=== PATIENT | female | born 1990 | race Caucasian/White ===

== ENCOUNTER 2020-02-20 17:35 | Inpatient (IN) ==
--- NOTE | 2020-02-20 18:26 | Labor Progress Brief Note ---
Date of Service February 20, 2020 Subjective Patient here for r/o ROM. She is 40w1d, , not c/o contractions or VB and has good FM. Assessment & Plan (1) Post term over 40 weeks: Admission and Anticipated Discharge Date Admission Date: Patient is not ruptured and not laboring. At this time the RN expresses concern that the patient's tracing does not qualify for discharge to home as it has not demonstrated two 15x15 bpm accelerations in her assessment. I agree we must be completely comfortable with tracing, at 40+ wk GA especially. Biophysical profile ordered to provide additional reassurance. Ultrasound staff are busy in OR right now and give us an estimate of 1-2 hours before this can be completed. Patient to be observed on monitor while waiting. Physical Exam Physical Exam: FHT Cat 1 Roe Rare irritability Cvx not assessed Nitrazine neg, no obvious LOF, Amnisure done and negative. Results & Data ([facility]) Vital Signs (Past 12 Hours) Vital Signs Temp Pulse Resp BP 02/20/20 17:51 98.1 F 16 02/20/20 17:44 98 H 137/83 Coding Level of Care Code None Diagnoses Post term over 40 weeks O48.0
[2020-02-20] MEDS ORDERED: OXYTOCIN 30 UNITS/500 ML BAG IV PRN ×2 (18:48→19:58)
--- NOTE | 2020-02-20 18:54 | Labor Progress Brief Note ---
Date of Service February 20, 2020 Subjective RN notified me that the patient got up to void, and that RN noted a pool of fluid on the chux pad beneath the patient. I went to the room to evaluate her myself. She continues to feel she is leaking, not jacinto, and has good FM. Assessment & Plan (1) PROM (premature rupture of membranes): Admission and Anticipated Discharge Date Admission Date: PROM now diagnosed; no active labor. Discussed with patient and FOB recommendation to begin induction with pitocin. They are agreeable. She is unsure if she wants an epidural or not. GBS positive, start PCN now. FHT now reactive, and discharge is no longer in the plans. BPP canceled. Physical Exam Physical Exam: SSE: Pool of amniotic fluid with vernix floaters, active leaking from os seen. CVX: 3/75/-2 FHT: Now cat 1 reactive, following one variable decel about 20 min ago. [place]: Quiet. Results & Data ([facility]) Vital Signs (Past 12 Hours) Vital Signs Temp Pulse Resp BP 02/20/20 17:51 98.1 F 16 02/20/20 17:44 98 H 137/83 Coding Level of Care Code None Diagnoses PROM (premature rupture of membranes) O42.90
[2020-02-20] MEDS ORDERED: PENICILLIN G POTASSIUM 6 MU in DEXTROSE 5% 250 ML IV ONE (19:00)
[2020-02-20] MEDS: LACTATED RINGER'S 1,000 ML IV PRN (19:06)
[2020-02-20 19:12] LABS: Hematocrit (blood only) 36.2 % (37-47); Hemoglobin 12.3 g/dL (12.0-16.0); Mean Corpuscular Hemoglobin 30.3 pg (25-34); Mean Corpuscular Volume 89.2 fL (80-100); Mean Platelet Volume 8.8 fL (7.4-10.4); Platelet Count 323 K/uL (130-400); RDW Coefficient of Variation 13.8 % (11.5-14.5); RDW Standard Deviation 45.2 fL (36.4-46.3); Red Blood Count 4.06 M/uL (4.2-5.4); White Blood Count 14.77 K/uL (4.8-10.8)
[2020-02-20] MEDS: PENICILLIN G POTASSIUM 3 MU in DEXTROSE 5% 100 ML IV PRN (23:18)
[2020-02-21] MEDS ORDERED: NALOXONE HCL 0.4 MG/1 ML VIAL/CARP IV PRN (00:35)
[2020-02-21] MEDS ORDERED: ePHEDrine sulfate 50 MG/ML AMP IV PRN (00:35)
[2020-02-21] MEDS ORDERED: ONDANSETRON INJ 2 MG/ML 2 ML VIAL IV PRN (00:35)
[2020-02-21] MEDS ORDERED: ePHEDrine sulfate 50 MG/ML AMP ONE (00:35)
[2020-02-21] MEDS ORDERED: NALOXONE HCL 1 MG in SODIUM CHLORIDE 0.9% 1000ML 1,000 ML IV PRN (00:35)
[2020-02-21] MEDS ORDERED: DiphenhydrAMINE HCL 50 MG/ML VIAL IV PRN (00:35)
[2020-02-21] MEDS ORDERED: fentaNYL 2MCG/ML ROPIV 1.25MG/ML 100 ML BAG EPI ONE (00:36)
[2020-02-21] MEDS ORDERED: fentaNYL citrate 100 MCG/2 ML VIAL ONE ×2 (00:36→13:00)
[2020-02-21] MEDS ORDERED: BUPIVACAINE 0.25% 30 ML VIAL ONE (00:36)
--- NOTE | 2020-02-21 00:42 | Anesthesiology Consultation ---
Date of Service February 21, 2020 Covid 19 negative on 02/17/20. Assessment & Plan Chart Review Chart Review: Patient NOT seen in Pre Admission Testing and Acceptable Risk for Labor Epidural Consults Requested none ASA ASA2 Proposed Anesthesia Anesthesia Type: Labor Epidural and CSE Risk / Benefits Reviewed With: PT / POA / Parent / Guardian, Accepts Plan and Informed Consent Obtained History Height/Weight Height: 5 ft 4 in Weight: 88.904 kg Allergies Allergy/AdvReac Type Severity Reaction Status Date / Time Bactrim Allergy Intermediate vomiting Verified 01/27/19 10:59 and hives sulfamethoxazole Allergy Intermediate vomiting Verified 02/20/20 17:46 and hives trimethoprim Allergy Intermediate vomiting Verified 02/20/20 17:46 and hives Medications Home Medications Medication Instructions Recorded Confirmed Last Taken prenat.vits,pamela,usf-xhoq-ocdxt 1 tab PO DAILY 07/09/19 02/20/20 02/20/20 Active Medications Generic Name Dose Route Start Last Admin Trade Name Freq PRN Reason Stop Dose Admin Lactated Ringer's 1,000 mls @ 125 mls/hr 02/20/20 18:48 02/20/20 23:18 Lr IV 02/22/20 18:47 0 mls/hr .Q8H PRN Infusion L&D Protocol Protocol Penicillin G Potassium 3 mu/ 106 mls @ 100 mls/hr 02/20/20 18:48 02/20/20 23:18 Dextrose IV 03/01/20 18:47 100 mls/hr Q4H PRN Administration Give until delivery Oxytocin 30 units in 500 mls @ 11 mls/hr 02/20/20 19:58 02/21/20 00:00 Pitocin IV 02/22/20 19:57 0.66 units/hr .Q24H PRN 11 mls/hr Labor Induction/Augmentation Titration Protocol 0.66 UNITS/HR NPO Date Last Intake of Fluids: 02/20/20 Time Last Intake of Fluids: 23:00 Date Last Intake of Solids: 02/20/20 Time Last Intake of Solids: 13:00 Past Medical History Medical History History of arthritis History of chicken pox 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 Vasovagal syncope Exercise / Class Metabolic Activity II 4-5 Yardwork/Stairs/Walk up hill Past Family History Family History Grandmother (Paternal) Breast cancer Mother Breast cancer Family/Other Hypertension Dyslipidemia Father Myocardial infarction Past Surgical History Surgical History H/O colposcopy with cervical biopsy S/P wisdom tooth extraction Past Anesthesia History No Hx of Anesthesia Complications and No Family Hx of Anesthesia Complications History of PONV No Hx of PONV and No Hx of Motion Sickness Social History Smoking Status: Never smoker Hx Alcohol Use: No Hx Substance Use: No Review of Systems no chest pain or sob Physical Exam Vital Signs Last Vital Signs Temp 36.6 C 02/20/20 23:29 Pulse 93 H 02/21/20 00:38 Resp 18 02/20/20 23:29 BP 124/66 02/20/20 23:54 Pulse Ox 98 02/21/20 00:38 ENMT Mouth: no TMJ abnormality Thyromental Distance: > or= 3.5 Finger Breadths Mallampati Class: II Neck normal visual inspection Respiratory normal respiratory effort Auscultation: lungs clear to auscultation bilaterally Cardiovascular Rate/Rhythm: regular rate and regular rhythm Musculoskeletal Spine: normal cervical ROM Neurologic moves all extremities Psychiatric Orientation: alert and oriented x 3 Testing Laboratory Results 02/20/20 19:00
[2020-02-21] MEDS: fentaNYL 2MCG/ML ROPIV 1.25MG/ML 100 ML BAG EPI PRN ×2 (01:00→08:50)
[2020-02-21] MEDS: LACTATED RINGER'S 1,000 ML IV PRN ×2 (01:08→06:01)
--- NOTE | 2020-02-21 02:46 | Labor Progress Brief Note ---
Date of Service February 21, 2020 Subjective Patient sleeping per RN, not awakened at this time. Assessment & Plan (1) PROM (premature rupture of membranes): Contine pitocin, epidural, Abx. Anticipate . Admission and Anticipated Discharge Date Admission Date: February 20, 2020 Physical Exam Physical Exam: Deferred. Last RN exam at midnight was 4/50/-2. FHT Cat 1 currently Has had some early decels prior to last repositioning. [place] Q2-5 irreg Pit @ 15 Results & Data ([facility]) Vital Signs (Past 12 Hours) Vital Signs Temp Pulse Resp BP Pulse Ox 02/21/20 02:43 86 98 02/21/20 02:40 76 99/57 L 02/21/20 02:38 77 98 02/21/20 02:33 95 H 99 02/21/20 02:30 18 02/21/20 02:28 106 H 97 02/21/20 02:25 85 105/64 02/21/20 02:23 86 97 02/21/20 02:18 86 96 02/21/20 02:13 89 98 02/21/20 02:09 89 112/56 L 02/21/20 02:08 90 95 02/21/20 02:06 98 H 94 02/21/20 02:03 97 H 96 02/21/20 02:00 18 02/21/20 01:58 85 95 02/21/20 01:55 90 115/56 L 02/21/20 01:53 82 95 02/21/20 01:48 84 97 02/21/20 01:46 101 H 94 02/21/20 01:43 87 96 02/21/20 01:38 100 H 97 02/21/20 01:37 82 106/56 L 02/21/20 01:33 93 H 105/58 L 95 02/21/20 01:30 18 02/21/20 01:28 78 97/52 L 95 02/21/20 01:24 85 94 02/21/20 01:23 84 104/58 L 96 02/21/20 01:20 97.9 F 02/21/20 01:19 93 H 111/57 L 02/21/20 01:18 114 H 97 02/21/20 01:15 18 02/21/20 01:13 90 100/54 L 97 02/21/20 01:10 86 18 94 02/21/20 01:08 89 96 02/21/20 01:06 89 102/59 L 02/21/20 01:05 18 02/21/20 01:04 83 101/56 L 02/21/20 01:03 100 H 97 02/21/20 01:02 91 H 100/57 L 02/21/20 01:00 90 18 102/59 L 02/21/20 00:58 85 105/63 98 02/21/20 00:57 104/57 L 02/21/20 00:55 65 94 02/21/20 00:54 63 92/54 L 02/21/20 00:53 63 84/47 L 95 02/21/20 00:52 54 L 94/49 L 02/21/20 00:48 76 97 02/21/20 00:43 101 H 96 02/21/20 00:38 93 H 98 02/20/20 23:54 93 H 124/66 02/20/20 23:29 97.9 F 18 02/20/20 22:46 84 132/72 02/20/20 21:37 97.7 F 79 18 114/77 02/20/20 20:37 83 119/74 02/20/20 19:21 99.1 F 85 18 128/78 02/20/20 17:51 98.1 F 16 02/20/20 17:44 98 H 137/83 Coding Level of Care Code None Diagnoses PROM (premature rupture of membranes) O42.90
[2020-02-21] MEDS: PENICILLIN G POTASSIUM 3 MU in DEXTROSE 5% 100 ML IV PRN ×3 (03:43→11:57)
--- NOTE | 2020-02-21 07:57 | Labor Progress Brief Note ---
Date of Service February 21, 2020 Subjective Comfortable with epidural. Assessment & Plan (1) PROM (premature rupture of membranes): Patient progressing with pitocin. Needed to take a 30-min break from the pit to allow resuscitation after some variables and elevated baseline earlier but now recovered well and resuming induction. Bloody show new at this check. Continues GBS abx. Admission and Anticipated Discharge Date Admission Date: February 20, 2020 Physical Exam Physical Exam: /0 Mildly edematous cervix and labia noted LOF clear Bloody show present FHT Cat 1 with occ early decels Pit restarting at 1, toco Q4-5 now. Results & Data ([facility]) Vital Signs (Past 12 Hours) Vital Signs Temp Pulse Resp BP Pulse Ox 02/21/20 07:49 99 H 99 02/21/20 07:44 96 H 99 02/21/20 07:39 110 H 123/82 98 02/21/20 07:34 109 H 99 02/21/20 07:29 103 H 99 02/21/20 07:24 101 H 123/76 98 02/21/20 07:19 97 H 99 02/21/20 07:14 116 H 99 02/21/20 07:09 105 H 122/77 99 02/21/20 07:04 96 H 98 02/21/20 07:00 18 02/21/20 06:59 106 H 97 02/21/20 06:54 105 H 121/76 98 02/21/20 06:49 105 H 99 02/21/20 06:47 120 H 91 02/21/20 06:44 104 H 99 02/21/20 06:39 100 H 100 02/21/20 06:38 100 H 115/71 02/21/20 06:34 90 100 02/21/20 06:30 18 02/21/20 06:29 104 H 100 02/21/20 06:24 90 116/67 100 02/21/20 06:19 87 100 02/21/20 06:14 86 100 02/21/20 06:09 86 116/69 100 02/21/20 06:04 90 100 02/21/20 06:00 18 02/21/20 05:59 96 H 100 02/21/20 05:54 93 H 123/71 98 02/21/20 05:49 98 H 98 02/21/20 05:44 105 H 98 02/21/20 05:40 103 H 127/75 02/21/20 05:39 99 H 92 02/21/20 05:35 104 H 94 02/21/20 05:34 97 H 93 02/21/20 05:30 18 02/21/20 05:29 92 H 98 02/21/20 05:24 88 121/68 97 02/21/20 05:19 102 H 98 02/21/20 05:16 97.9 F 02/21/20 05:14 91 H 97 02/21/20 05:09 82 118/63 97 02/21/20 05:04 86 99 02/21/20 05:00 18 02/21/20 04:59 89 99 02/21/20 04:54 91 H 122/73 97 02/21/20 04:49 90 97 02/21/20 04:44 99 H 97 02/21/20 04:39 88 113/69 97 02/21/20 04:34 86 96 02/21/20 04:30 18 02/21/20 04:29 89 97 02/21/20 04:24 99 H 118/68 98 02/21/20 04:19 92 H 98 02/21/20 04:14 94 H 98 02/21/20 04:09 95 H 120/69 98 02/21/20 04:04 95 H 97 02/21/20 03:59 99 H 96 02/21/20 03:54 88 125/76 97 02/21/20 03:49 99 H 95 02/21/20 03:46 102 H 92 02/21/20 03:44 97 H 97 02/21/20 03:40 96 H 121/79 02/21/20 03:39 93 H 98 02/21/20 03:37 98.1 F 02/21/20 03:34 99 H 97 02/21/20 03:30 18 02/21/20 03:29 89 97 02/21/20 03:24 100 H 115/64 99 02/21/20 03:19 76 96 02/21/20 03:14 80 96 02/21/20 03:09 90 97/58 L 97 02/21/20 03:04 86 97 02/21/20 03:00 18 02/21/20 02:59 79 97 02/21/20 02:54 75 100/58 L 97 02/21/20 02:48 80 97 02/21/20 02:43 86 98 02/21/20 02:40 76 99/57 L 02/21/20 02:38 77 98 02/21/20 02:33 95 H 99 02/21/20 02:30 18 02/21/20 02:28 106 H 97 02/21/20 02:25 85 105/64 02/21/20 02:23 86 97 02/21/20 02:18 86 96 02/21/20 02:13 89 98 02/21/20 02:09 89 112/56 L 02/21/20 02:08 90 95 02/21/20 02:06 98 H 94 02/21/20 02:03 97 H 96 02/21/20 02:00 18 02/21/20 01:58 85 95 02/21/20 01:55 90 115/56 L 02/21/20 01:53 82 95 02/21/20 01:48 84 97 02/21/20 01:46 101 H 94 02/21/20 01:43 87 96 02/21/20 01:38 100 H 97 02/21/20 01:37 82 106/56 L 02/21/20 01:33 93 H 105/58 L 95 02/21/20 01:30 18 02/21/20 01:28 78 97/52 L 95 02/21/20 01:24 85 94 02/21/20 01:23 84 104/58 L 96 02/21/20 01:20 97.9 F 02/21/20 01:19 93 H 111/57 L 02/21/20 01:18 114 H 97 02/21/20 01:15 18 02/21/20 01:13 90 100/54 L 97 02/21/20 01:10 86 18 94 02/21/20 01:08 89 96 02/21/20 01:06 89 102/59 L 02/21/20 01:05 18 02/21/20 01:04 83 101/56 L 02/21/20 01:03 100 H 97 02/21/20 01:02 91 H 100/57 L 02/21/20 01:00 90 18 102/59 L 02/21/20 00:58 85 105/63 98 08/17/20 00:57 104/57 L 02/21/20 00:55 65 94 02/21/20 00:54 63 92/54 L 02/21/20 00:53 63 84/47 L 95 02/21/20 00:52 54 L 94/49 L 02/21/20 00:48 76 97 02/21/20 00:43 101 H 96 02/21/20 00:38 93 H 98 02/20/20 23:54 93 H 124/66 02/20/20 23:29 97.9 F 18 02/20/20 22:46 84 132/72 02/20/20 21:37 97.7 F 79 18 114/77 02/20/20 20:37 83 119/74 Coding Level of Care Code None Diagnoses PROM (premature rupture of membranes) O42.90
--- NOTE | 2020-02-21 09:54 | Labor Progress Brief Note ---
Date of Service February 21, 2020 Subjective Patient noting pressure in back and bottom Assessment & Plan (1) PROM (premature rupture of membranes): (2) Post term over 40 weeks: Pitocin has been restarted. Fetus overall reassuring category 2. Concerned about swelling of the cervix at this point. Will recheck in one hour and if no change, plan iupc. Admission and Anticipated Discharge Date Admission Date: February 20, 2020 Physical Exam Constitutional: WD/WN, vitals as above Psychiatric: A+Ox3, euthymic affect Genitourinary: cx--5.5/80/-2, swollen toco--q2-4min, pit at 7 efm--150s wtih mod variability, accels to 160s, +scalp stim, occasional variable Results & Data ([facility]) Vital Signs (Past 12 Hours) Vital Signs Temp Pulse Resp BP Pulse Ox 02/21/20 09:49 105 H 95 02/21/20 09:44 114 H 99 02/21/20 09:39 103 H 117/71 98 02/21/20 09:34 92 H 96 02/21/20 09:29 101 H 96 02/21/20 09:25 100 H 83 L 02/21/20 09:24 106 H 116/64 96 02/21/20 09:19 101 H 112/63 97 02/21/20 09:14 103 H 98 02/21/20 09:09 94 H 118/62 96 02/21/20 09:04 94 H 95 02/21/20 08:59 97 H 98 02/21/20 08:54 95 H 122/72 98 02/21/20 08:49 105 H 97 02/21/20 08:44 96 H 97 02/21/20 08:39 102 H 119/70 98 02/21/20 08:34 103 H 97 02/21/20 08:31 100 H 93 02/21/20 08:29 104 H 100 02/21/20 08:24 103 H 120/72 97 02/21/20 08:19 104 H 98 02/21/20 08:14 99 H 98 02/21/20 08:09 102 H 118/70 99 02/21/20 08:04 98 H 98 02/21/20 07:59 105 H 99 02/21/20 07:54 111 H 122/73 98 02/21/20 07:49 99 H 99 02/21/20 07:44 96 H 99 02/21/20 07:39 37.3 C 102 H 18 123/82 98 02/21/20 07:34 109 H 99 02/21/20 07:29 103 H 99 02/21/20 07:24 101 H 123/76 98 02/21/20 07:19 97 H 99 02/21/20 07:14 116 H 99 02/21/20 07:09 105 H 122/77 99 02/21/20 07:04 96 H 98 02/21/20 07:00 18 02/21/20 06:59 106 H 97 02/21/20 06:54 105 H 121/76 98 02/21/20 06:49 105 H 99 02/21/20 06:47 120 H 91 02/21/20 06:44 104 H 99 02/21/20 06:39 100 H 100 02/21/20 06:38 100 H 115/71 02/21/20 06:34 90 100 02/21/20 06:30 18 02/21/20 06:29 104 H 100 02/21/20 06:24 90 116/67 100 02/21/20 06:19 87 100 02/21/20 06:14 86 100 02/21/20 06:09 86 116/69 100 02/21/20 06:04 90 100 02/21/20 06:00 18 02/21/20 05:59 96 H 100 02/21/20 05:54 93 H 123/71 98 02/21/20 05:49 98 H 98 02/21/20 05:44 105 H 98 02/21/20 05:40 103 H 127/75 02/21/20 05:39 99 H 92 02/21/20 05:35 104 H 94 02/21/20 05:34 97 H 93 02/21/20 05:30 18 02/21/20 05:29 92 H 98 02/21/20 05:24 88 121/68 97 02/21/20 05:19 102 H 98 02/21/20 05:16 36.6 C 02/21/20 05:14 91 H 97 02/21/20 05:09 82 118/63 97 02/21/20 05:04 86 99 02/21/20 05:00 18 02/21/20 04:59 89 99 02/21/20 04:54 91 H 122/73 97 02/21/20 04:49 90 97 02/21/20 04:44 99 H 97 02/21/20 04:39 88 113/69 97 02/21/20 04:34 86 96 02/21/20 04:30 18 02/21/20 04:29 89 97 02/21/20 04:24 99 H 118/68 98 02/21/20 04:19 92 H 98 02/21/20 04:14 94 H 98 02/21/20 04:09 95 H 120/69 98 02/21/20 04:04 95 H 97 02/21/20 03:59 99 H 96 02/21/20 03:54 88 125/76 97 02/21/20 03:49 99 H 95 02/21/20 03:46 102 H 92 02/21/20 03:44 97 H 97 02/21/20 03:40 96 H 121/79 02/21/20 03:39 93 H 98 02/21/20 03:37 36.7 C 02/21/20 03:34 99 H 97 02/21/20 03:30 18 02/21/20 03:29 89 97 02/21/20 03:24 100 H 115/64 99 02/21/20 03:19 76 96 02/21/20 03:14 80 96 02/21/20 03:09 90 97/58 L 97 02/21/20 03:04 86 97 02/21/20 03:00 18 02/21/20 02:59 79 97 02/21/20 02:54 75 100/58 L 97 02/21/20 02:48 80 97 02/21/20 02:43 86 98 02/21/20 02:40 76 99/57 L 02/21/20 02:38 77 98 02/21/20 02:33 95 H 99 02/21/20 02:30 18 02/21/20 02:28 106 H 97 02/21/20 02:25 85 105/64 02/21/20 02:23 86 97 02/21/20 02:18 86 96 02/21/20 02:13 89 98 02/21/20 02:09 89 112/56 L 02/21/20 02:08 90 95 02/21/20 02:06 98 H 94 02/21/20 02:03 97 H 96 02/21/20 02:00 18 02/21/20 01:58 85 95 02/21/20 01:55 90 115/56 L 02/21/20 01:53 82 95 02/21/20 01:48 84 97 02/21/20 01:46 101 H 94 02/21/20 01:43 87 96 02/21/20 01:38 100 H 97 02/21/20 01:37 82 106/56 L 02/21/20 01:33 93 H 105/58 L 95 02/21/20 01:30 18 02/21/20 01:28 78 97/52 L 95 02/21/20 01:24 85 94 02/21/20 01:23 84 104/58 L 96 02/21/20 01:20 36.6 C 02/21/20 01:19 93 H 111/57 L 02/21/20 01:18 114 H 97 02/21/20 01:15 18 02/21/20 01:13 90 100/54 L 97 02/21/20 01:10 86 18 94 02/21/20 01:08 89 96 02/21/20 01:06 89 102/59 L 02/21/20 01:05 18 02/21/20 01:04 83 101/56 L 02/21/20 01:03 100 H 97 02/21/20 01:02 91 H 100/57 L 02/21/20 01:00 90 18 102/59 L 02/21/20 00:58 85 105/63 98 02/21/20 00:57 104/57 L 02/21/20 00:55 65 94 02/21/20 00:54 63 92/54 L 02/21/20 00:53 63 84/47 L 95 02/21/20 00:52 54 L 94/49 L 02/21/20 00:48 76 97 02/21/20 00:43 101 H 96 02/21/20 00:38 93 H 98 02/20/20 23:54 93 H 124/66 02/20/20 23:29 36.6 C 18 02/20/20 22:46 84 132/72 Coding Level of Care Code None Diagnoses PROM (premature rupture of membranes) O42.90 Post term over 40 weeks O48.0
--- NOTE | 2020-02-21 10:53 | Labor Progress Brief Note ---
Date of Service February 21, 2020 Subjective resting Assessment & Plan (1) Post term over 40 weeks: continue pitocin to achieve contractions of 200mvu. fetus overall reassuring. Admission and Anticipated Discharge Date Admission Date: February 20, 2020 Physical Exam Constitutional: WD/WN, vitals as above Psychiatric: A+Ox3, euthymic affect Genitourinary: cx--6/90/-2 iupc placed toco--q2-4min, dysfunctional, pit 11 efm--150s wtih mod variability, accels to 160s, +scalp stim, occasional variable Results & Data ([facility]) Vital Signs (Past 12 Hours) Vital Signs Temp Pulse Resp BP Pulse Ox 02/21/20 10:49 101 H 98 02/21/20 10:44 111 H 98 02/21/20 10:39 104 H 127/71 95 02/21/20 10:34 120 H 94 02/21/20 10:29 112 H 98 02/21/20 10:24 100 H 127/70 96 02/21/20 10:19 117 H 98 02/21/20 10:14 107 H 99 02/21/20 10:09 105 H 127/67 99 02/21/20 10:08 20 02/21/20 10:04 104 H 98 02/21/20 09:59 102 H 96 02/21/20 09:54 104 H 128/75 98 02/21/20 09:49 105 H 95 02/21/20 09:44 114 H 99 02/21/20 09:39 103 H 117/71 98 02/21/20 09:34 92 H 96 02/21/20 09:29 101 H 96 02/21/20 09:25 100 H 83 L 02/21/20 09:24 106 H 116/64 96 02/21/20 09:19 101 H 112/63 97 02/21/20 09:18 37.4 C 18 02/21/20 09:14 103 H 98 02/21/20 09:09 94 H 118/62 96 02/21/20 09:04 94 H 95 02/21/20 08:59 97 H 98 02/21/20 08:54 95 H 122/72 98 02/21/20 08:49 105 H 97 02/21/20 08:44 96 H 97 02/21/20 08:39 102 H 119/70 98 02/21/20 08:34 103 H 97 02/21/20 08:31 100 H 93 02/21/20 08:29 104 H 100 02/21/20 08:24 103 H 120/72 97 02/21/20 08:23 16 02/21/20 08:19 104 H 98 02/21/20 08:14 99 H 98 02/21/20 08:09 102 H 118/70 99 02/21/20 08:04 98 H 98 02/21/20 07:59 105 H 99 02/21/20 07:54 111 H 122/73 98 02/21/20 07:49 99 H 99 02/21/20 07:44 96 H 99 02/21/20 07:39 37.3 C 102 H 18 123/82 98 02/21/20 07:34 109 H 99 02/21/20 07:29 103 H 99 02/21/20 07:24 101 H 123/76 98 02/21/20 07:19 97 H 99 02/21/20 07:14 116 H 99 02/21/20 07:09 105 H 122/77 99 02/21/20 07:04 96 H 98 02/21/20 07:00 18 02/21/20 06:59 106 H 97 02/21/20 06:54 105 H 121/76 98 02/21/20 06:49 105 H 99 02/21/20 06:47 120 H 91 02/21/20 06:44 104 H 99 02/21/20 06:39 100 H 100 02/21/20 06:38 100 H 115/71 02/21/20 06:34 90 100 02/21/20 06:30 18 02/21/20 06:29 104 H 100 02/21/20 06:24 90 116/67 100 02/21/20 06:19 87 100 02/21/20 06:14 86 100 02/21/20 06:09 86 116/69 100 02/21/20 06:04 90 100 02/21/20 06:00 18 02/21/20 05:59 96 H 100 02/21/20 05:54 93 H 123/71 98 02/21/20 05:49 98 H 98 02/21/20 05:44 105 H 98 02/21/20 05:40 103 H 127/75 08/17/20 05:39 99 H 92 02/21/20 05:35 104 H 94 02/21/20 05:34 97 H 93 02/21/20 05:30 18 02/21/20 05:29 92 H 98 02/21/20 05:24 88 121/68 97 02/21/20 05:19 102 H 98 02/21/20 05:16 36.6 C 02/21/20 05:14 91 H 97 02/21/20 05:09 82 118/63 97 02/21/20 05:04 86 99 02/21/20 05:00 18 02/21/20 04:59 89 99 02/21/20 04:54 91 H 122/73 97 02/21/20 04:49 90 97 02/21/20 04:44 99 H 97 02/21/20 04:39 88 113/69 97 02/21/20 04:34 86 96 02/21/20 04:30 18 02/21/20 04:29 89 97 02/21/20 04:24 99 H 118/68 98 02/21/20 04:19 92 H 98 02/21/20 04:14 94 H 98 02/21/20 04:09 95 H 120/69 98 02/21/20 04:04 95 H 97 02/21/20 03:59 99 H 96 02/21/20 03:54 88 125/76 97 02/21/20 03:49 99 H 95 02/21/20 03:46 102 H 92 02/21/20 03:44 97 H 97 02/21/20 03:40 96 H 121/79 02/21/20 03:39 93 H 98 02/21/20 03:37 36.7 C 02/21/20 03:34 99 H 97 02/21/20 03:30 18 02/21/20 03:29 89 97 02/21/20 03:24 100 H 115/64 99 02/21/20 03:19 76 96 02/21/20 03:14 80 96 02/21/20 03:09 90 97/58 L 97 02/21/20 03:04 86 97 02/21/20 03:00 18 02/21/20 02:59 79 97 02/21/20 02:54 75 100/58 L 97 02/21/20 02:48 80 97 02/21/20 02:43 86 98 02/21/20 02:40 76 99/57 L 02/21/20 02:38 77 98 02/21/20 02:33 95 H 99 02/21/20 02:30 18 02/21/20 02:28 106 H 97 02/21/20 02:25 85 105/64 02/21/20 02:23 86 97 02/21/20 02:18 86 96 02/21/20 02:13 89 98 02/21/20 02:09 89 112/56 L 02/21/20 02:08 90 95 02/21/20 02:06 98 H 94 02/21/20 02:03 97 H 96 02/21/20 02:00 18 02/21/20 01:58 85 95 02/21/20 01:55 90 115/56 L 02/21/20 01:53 82 95 02/21/20 01:48 84 97 02/21/20 01:46 101 H 94 02/21/20 01:43 87 96 02/21/20 01:38 100 H 97 02/21/20 01:37 82 106/56 L 02/21/20 01:33 93 H 105/58 L 95 02/21/20 01:30 18 02/21/20 01:28 78 97/52 L 95 02/21/20 01:24 85 94 02/21/20 01:23 84 104/58 L 96 02/21/20 01:20 36.6 C 02/21/20 01:19 93 H 111/57 L 02/21/20 01:18 114 H 97 02/21/20 01:15 18 02/21/20 01:13 90 100/54 L 97 02/21/20 01:10 86 18 94 02/21/20 01:08 89 96 02/21/20 01:06 89 102/59 L 02/21/20 01:05 18 02/21/20 01:04 83 101/56 L 02/21/20 01:03 100 H 97 02/21/20 01:02 91 H 100/57 L 02/21/20 01:00 90 18 102/59 L 02/21/20 00:58 85 105/63 98 02/21/20 00:57 104/57 L 02/21/20 00:55 65 94 02/21/20 00:54 63 92/54 L 02/21/20 00:53 63 84/47 L 95 02/21/20 00:52 54 L 94/49 L 02/21/20 00:48 76 97 02/21/20 00:43 101 H 96 02/21/20 00:38 93 H 98 02/20/20 23:54 93 H 124/66 02/20/20 23:29 36.6 C 18 Coding Level of Care Code None Diagnoses Post term over 40 weeks O48.0
--- NOTE | 2020-02-21 12:56 | Labor Progress Brief Note ---
Date of Service February 21, 2020 Subjective Patient uncomfortable with contractions. Assessment & Plan (1) Post term over 40 weeks: Making slow but positive change. Fetus category 2 but reassuring. IUPC removed as not properly working. External belt placed. Will hold at 15 given making change. Still hoping for vaginal bleeding. Admission and Anticipated Discharge Date Admission Date: February 20, 2020 Physical Exam Constitutional: WD/WN, vitals as above Psychiatric: A+Ox3, euthymic affect Genitourinary: cx--7-8/90/-1, head molding toco--difficult tracing with iupc and does not appear to be working appropriately. pit at 15, dysfunctional pattern efm--155 with mod variability, accels present, +scalp stim, early/variable with some contractions. Results & Data ([facility]) Vital Signs (Past 12 Hours) Vital Signs Temp Pulse Resp BP Pulse Ox 02/21/20 12:49 109 H 100 02/21/20 12:44 120 H 97 02/21/20 12:39 109 H 143/71 H 97 02/21/20 12:34 118 H 97 02/21/20 12:30 20 02/21/20 12:29 107 H 98 02/21/20 12:25 118 H 151/71 H 02/21/20 12:24 115 H 95 02/21/20 12:19 110 H 97 02/21/20 12:14 112 H 97 02/21/20 12:09 112 H 125/67 99 02/21/20 12:04 113 H 98 02/21/20 11:59 110 H 98 02/21/20 11:54 114 H 128/60 98 02/21/20 11:49 107 H 97 02/21/20 11:44 94 H 97 02/21/20 11:39 101 H 114/66 99 02/21/20 11:34 111 H 98 02/21/20 11:29 119 H 98 02/21/20 11:24 113 H 130/74 97 02/21/20 11:19 102 H 97 02/21/20 11:14 106 H 98 02/21/20 11:09 114 H 132/72 97 02/21/20 11:04 108 H 100 02/21/20 10:59 109 H 99 02/21/20 10:54 111 H 129/71 99 02/21/20 10:50 115 H 93 02/21/20 10:49 101 H 98 02/21/20 10:44 111 H 98 02/21/20 10:39 104 H 127/71 95 02/21/20 10:34 120 H 94 02/21/20 10:29 112 H 98 02/21/20 10:24 100 H 127/70 96 02/21/20 10:19 117 H 98 02/21/20 10:14 107 H 99 02/21/20 10:09 105 H 127/67 99 02/21/20 10:08 20 02/21/20 10:04 104 H 98 02/21/20 09:59 102 H 96 02/21/20 09:54 104 H 128/75 98 02/21/20 09:49 105 H 95 02/21/20 09:44 114 H 99 02/21/20 09:39 103 H 117/71 98 02/21/20 09:34 92 H 96 02/21/20 09:29 101 H 96 02/21/20 09:25 100 H 83 L 02/21/20 09:24 106 H 116/64 96 02/21/20 09:19 101 H 112/63 97 02/21/20 09:18 37.4 C 18 02/21/20 09:14 103 H 98 02/21/20 09:09 94 H 118/62 96 02/21/20 09:04 94 H 95 02/21/20 08:59 97 H 98 02/21/20 08:54 95 H 122/72 98 02/21/20 08:49 105 H 97 02/21/20 08:44 96 H 97 02/21/20 08:39 102 H 119/70 98 02/21/20 08:34 103 H 97 02/21/20 08:31 100 H 93 02/21/20 08:29 104 H 100 02/21/20 08:24 103 H 120/72 97 02/21/20 08:23 16 02/21/20 08:19 104 H 98 02/21/20 08:14 99 H 98 02/21/20 08:09 102 H 118/70 99 02/21/20 08:04 98 H 98 02/21/20 07:59 105 H 99 02/21/20 07:54 111 H 122/73 98 02/21/20 07:49 99 H 99 02/21/20 07:44 96 H 99 02/21/20 07:39 37.3 C 102 H 18 123/82 98 02/21/20 07:34 109 H 99 02/21/20 07:29 103 H 99 02/21/20 07:24 101 H 123/76 98 02/21/20 07:19 97 H 99 02/21/20 07:14 116 H 99 02/21/20 07:09 105 H 122/77 99 02/21/20 07:04 96 H 98 02/21/20 07:00 18 02/21/20 06:59 106 H 97 02/21/20 06:54 105 H 121/76 98 02/21/20 06:49 105 H 99 02/21/20 06:47 120 H 91 02/21/20 06:44 104 H 99 02/21/20 06:39 100 H 100 02/21/20 06:38 100 H 115/71 02/21/20 06:34 90 100 02/21/20 06:30 18 02/21/20 06:29 104 H 100 02/21/20 06:24 90 116/67 100 02/21/20 06:19 87 100 02/21/20 06:14 86 100 02/21/20 06:09 86 116/69 100 02/21/20 06:04 90 100 02/21/20 06:00 18 02/21/20 05:59 96 H 100 02/21/20 05:54 93 H 123/71 98 02/21/20 05:49 98 H 98 02/21/20 05:44 105 H 98 02/21/20 05:40 103 H 127/75 02/21/20 05:39 99 H 92 02/21/20 05:35 104 H 94 02/21/20 05:34 97 H 93 02/21/20 05:30 18 02/21/20 05:29 92 H 98 02/21/20 05:24 88 121/68 97 02/21/20 05:19 102 H 98 02/21/20 05:16 36.6 C 02/21/20 05:14 91 H 97 02/21/20 05:09 82 118/63 97 02/21/20 05:04 86 99 02/21/20 05:00 18 02/21/20 04:59 89 99 02/21/20 04:54 91 H 122/73 97 02/21/20 04:49 90 97 02/21/20 04:44 99 H 97 02/21/20 04:39 88 113/69 97 02/21/20 04:34 86 96 02/21/20 04:30 18 02/21/20 04:29 89 97 02/21/20 04:24 99 H 118/68 98 02/21/20 04:19 92 H 98 02/21/20 04:14 94 H 98 02/21/20 04:09 95 H 120/69 98 02/21/20 04:04 95 H 97 02/21/20 03:59 99 H 96 02/21/20 03:54 88 125/76 97 02/21/20 03:49 99 H 95 02/21/20 03:46 102 H 92 02/21/20 03:44 97 H 97 02/21/20 03:40 96 H 121/79 02/21/20 03:39 93 H 98 02/21/20 03:37 36.7 C 02/21/20 03:34 99 H 97 02/21/20 03:30 18 02/21/20 03:29 89 97 02/21/20 03:24 100 H 115/64 99 02/21/20 03:19 76 96 02/21/20 03:14 80 96 02/21/20 03:09 90 97/58 L 97 02/21/20 03:04 86 97 02/21/20 03:00 18 02/21/20 02:59 79 97 02/21/20 02:54 75 100/58 L 97 02/21/20 02:48 80 97 02/21/20 02:43 86 98 02/21/20 02:40 76 99/57 L 02/21/20 02:38 77 98 02/21/20 02:33 95 H 99 02/21/20 02:30 18 02/21/20 02:28 106 H 97 02/21/20 02:25 85 105/64 02/21/20 02:23 86 97 02/21/20 02:18 86 96 02/21/20 02:13 89 98 02/21/20 02:09 89 112/56 L 02/21/20 02:08 90 95 02/21/20 02:06 98 H 94 02/21/20 02:03 97 H 96 02/21/20 02:00 18 02/21/20 01:58 85 95 02/21/20 01:55 90 115/56 L 02/21/20 01:53 82 95 02/21/20 01:48 84 97 02/21/20 01:46 101 H 94 02/21/20 01:43 87 96 02/21/20 01:38 100 H 97 02/21/20 01:37 82 106/56 L 02/21/20 01:33 93 H 105/58 L 95 02/21/20 01:30 18 02/21/20 01:28 78 97/52 L 95 02/21/20 01:24 85 94 02/21/20 01:23 84 104/58 L 96 02/21/20 01:20 36.6 C 02/21/20 01:19 93 H 111/57 L 02/21/20 01:18 114 H 97 02/21/20 01:15 18 02/21/20 01:13 90 100/54 L 97 02/21/20 01:10 86 18 94 02/21/20 01:08 89 96 02/21/20 01:06 89 102/59 L 02/21/20 01:05 18 02/21/20 01:04 83 101/56 L 02/21/20 01:03 100 H 97 02/21/20 01:02 91 H 100/57 L 02/21/20 01:00 90 18 102/59 L 02/21/20 00:58 85 105/63 98 02/21/20 00:57 104/57 L 02/21/20 00:55 65 94 02/21/20 00:54 63 92/54 L Coding Level of Care Code None Diagnoses Post term over 40 weeks O48.0
--- NOTE | 2020-02-21 13:36 | Anesthesiology Progress Note ---
Date of Service February 21, 2020 Assessment & Plan Admission and Anticipated Discharge Date Admission Date: February 20, 2020 Subjective asked to reassess epidural. Pt complains of pain in lower abdomen. bolused 100 mcg fentanyl and 5 ml 1% lidocaine. Pt reports improvement in pain. VSS throughout Physical Exam Vital Signs: Last Vital Signs Temp 36.8 C 02/21/20 13:08 Pulse 100 H 02/21/20 13:33 Resp 18 02/21/20 13:08 BP 106/58 L 02/21/20 13:33 Pulse Ox 97 02/21/20 13:29 Results & Data ([facility]) Medications Administered Lactated Ringer's (Lr) 1,000 mls @ 125 mls/hr IV .Q8H PRN; Protocol PRN Reason: L&D Protocol Stop: 02/22/20 18:47 Last Admin: 02/21/20 06:01 Dose: 125 mls/hr Documented by: [id number] Infusion: 02/21/20 05:56 Dose: 999 mls/hr Documented by: [id number] Infusion: 02/21/20 05:19 Dose: 999 mls/hr Documented by: [id number] Infusion: 02/21/20 04:55 Dose: 125 mls/hr Documented by: [id number] Infusion: 02/21/20 03:43 Dose: 0 mls/hr Documented by: [id number] Infusion: 02/21/20 01:09 Dose: 125 mls/hr Documented by: [id number] Admin: 02/21/20 01:08 Dose: 999 mls/hr Documented by: [id number] Infusion: 02/21/20 01:08 Dose: 125 mls/hr Documented by: [id number] Infusion: 02/21/20 00:33 Dose: 999 mls/hr Documented by: [id number] Infusion: 02/21/20 00:25 Dose: 125 mls/hr Documented by: [id number] Infusion: 02/20/20 23:18 Dose: 0 mls/hr Documented by: [id number] Infusion: 02/20/20 20:20 Dose: 125 mls/hr Documented by: [id number] Infusion: 02/20/20 19:18 Dose: 0 mls/hr Documented by: [id number] Admin: 02/20/20 19:06 Dose: 125 mls/hr Documented by: [id number] Penicillin G Potassium 3 mu/ (Dextrose) 106 mls @ 100 mls/hr IV Q4H PRN PRN Reason: Give until delivery Stop: 03/01/20 18:47 Last Admin: 02/21/20 11:57 Dose: 100 mls/hr Documented by: [id number] Infusion: 02/21/20 08:47 Dose: 100 mls/hr Documented by: [id number] Admin: 02/21/20 07:43 Dose: 100 mls/hr Documented by: [id number] Infusion: 02/21/20 04:55 Dose: 0 mls/hr Documented by: [id number] Admin: 02/21/20 03:43 Dose: 100 mls/hr Documented by: [id number] Infusion: 02/21/20 00:25 Dose: 0 mls/hr Documented by: [id number] Admin: 02/20/20 23:18 Dose: 100 mls/hr Documented by: [id number] Oxytocin (Pitocin) 30 units in 500 mls @ 15 mls/hr IV .Q24H PRN; Protocol PRN Reason: Labor Induction/Augmentation Stop: 02/22/20 19:57 Last Titration: 02/21/20 12:27 Dose: 0.9 units/hr, 15 mls/hr Documented by: [id number] Titration: 02/21/20 11:40 Dose: 0.78 units/hr, 13 mls/hr Documented by: [id number] Titration: 02/21/20 10:20 Dose: 0.66 units/hr, 11 mls/hr Documented by: [id number] Titration: 02/21/20 09:50 Dose: 0.54 units/hr, 9 mls/hr Documented by: [id number] Titration: 02/21/20 09:15 Dose: 0.42 units/hr, 7 mls/hr Documented by: [id number] Titration: 02/21/20 08:15 Dose: 0.3 units/hr, 5 mls/hr Documented by: [id number] Titration: 02/21/20 07:45 Dose: 0.18 units/hr, 3 mls/hr Documented by: [id number] Titration: 02/21/20 06:39 Dose: 0.06 units/hr, 1 mls/hr Documented by: [id number] Titration: 02/21/20 05:37 Dose: 0 units/hr, 0 mls/hr Documented by: [id number] Titration: 02/21/20 04:10 Dose: 1.02 units/hr, 17 mls/hr Documented by: [id number] Titration: 02/21/20 02:26 Dose: 0.9 units/hr, 15 mls/hr Documented by: [id number] Titration: 02/21/20 00:30 Dose: 0.78 units/hr, 13 mls/hr Documented by: [id number] Titration: 02/21/20 00:00 Dose: 0.66 units/hr, 11 mls/hr Documented by: [id number] Titration: 02/20/20 22:45 Dose: 0.54 units/hr, 9 mls/hr Documented by: [id number] Titration: 02/20/20 22:05 Dose: 0.42 units/hr, 7 mls/hr Documented by: [id number] Titration: 02/20/20 21:35 Dose: 0.3 units/hr, 5 mls/hr Documented by: [id number] Titration: 02/20/20 21:08 Dose: 0.18 units/hr, 3 mls/hr Documented by: [id number] Admin: 02/20/20 20:35 Dose: 0.06 units/hr, 1 mls/hr Documented by: [id number] Cosigned by: [id number] Ropivacaine (Fentanyl 2mcg/Ml Ropiv 1.25mg/Ml 100 Ml Bag) 100 ml EPI PRN PRN; Protocol PRN Reason: Pain R/T Labor Stop: 02/22/20 00:34 Last Admin: 02/21/20 08:50 Dose: 100 mg Documented by: [id number] Cosigned by: [id number] Admin: 02/21/20 01:00 Dose: 100 mg Documented by: [id number] Cosigned by: [id number]
--- NOTE | 2020-02-21 13:59 | Labor Progress Brief Note ---
Date of Service February 21, 2020 Subjective comfortable after redose Assessment & Plan (1) Post term over 40 weeks: continue current management. vertex really molding for fitting through pelvis. Fetus reassuring category 2. Admission and Anticipated Discharge Date Admission Date: February 20, 2020 Physical Exam Constitutional: WD/WN, vitals as above Psychiatric: A+Ox3, euthymic affect Genitourinary: cx--rim/0 toco--q1-3min, pit at 15 efm--150s with mod variablity, accels to 180s, variables with some contractions Results & Data ([facility]) Vital Signs (Past 12 Hours) Vital Signs Temp Pulse Resp BP Pulse Ox 02/21/20 13:54 103 H 108/65 97 02/21/20 13:49 107 H 97 02/21/20 13:48 113 H 106/61 02/21/20 13:44 89 107/61 95 02/21/20 13:39 90 95 02/21/20 13:38 89 112/61 02/21/20 13:34 105 H 97 02/21/20 13:33 100 H 106/58 L 02/21/20 13:29 109 H 97 02/21/20 13:28 99 H 110/67 02/21/20 13:24 117 H 98 02/21/20 13:23 96 H 110/64 02/21/20 13:22 112 H 112/67 02/21/20 13:20 92 H 94 02/21/20 13:19 92 H 94 02/21/20 13:18 102 H 112/58 L 02/21/20 13:14 114 H 119/59 L 99 02/21/20 13:09 104 H 97 02/21/20 13:08 36.8 C 104 H 18 109/60 98 02/21/20 13:06 113 H 116/66 02/21/20 13:04 110 H 118/67 98 02/21/20 13:02 108 H 120/65 02/21/20 13:00 111 H 117/65 02/21/20 12:59 105 H 100 02/21/20 12:58 100 H 108/63 02/21/20 12:56 105 H 119/65 02/21/20 12:55 108 H 124/69 02/21/20 12:54 113 H 99 02/21/20 12:49 109 H 100 02/21/20 12:44 120 H 97 02/21/20 12:39 109 H 143/71 H 97 02/21/20 12:34 118 H 97 02/21/20 12:30 20 02/21/20 12:29 107 H 98 02/21/20 12:25 118 H 151/71 H 02/21/20 12:24 115 H 95 02/21/20 12:19 110 H 97 02/21/20 12:14 112 H 97 02/21/20 12:09 112 H 125/67 99 02/21/20 12:04 113 H 98 02/21/20 11:59 110 H 98 02/21/20 11:54 114 H 128/60 98 02/21/20 11:49 107 H 97 02/21/20 11:44 94 H 97 02/21/20 11:39 101 H 114/66 99 02/21/20 11:34 111 H 98 02/21/20 11:29 119 H 98 02/21/20 11:24 113 H 130/74 97 02/21/20 11:19 102 H 97 02/21/20 11:14 106 H 98 02/21/20 11:09 114 H 132/72 97 02/21/20 11:04 108 H 100 02/21/20 10:59 109 H 99 02/21/20 10:54 111 H 129/71 99 02/21/20 10:50 115 H 93 02/21/20 10:49 101 H 98 02/21/20 10:44 111 H 98 02/21/20 10:39 104 H 127/71 95 02/21/20 10:34 120 H 94 02/21/20 10:29 112 H 98 02/21/20 10:24 100 H 127/70 96 02/21/20 10:19 117 H 98 02/21/20 10:14 107 H 99 02/21/20 10:09 105 H 127/67 99 02/21/20 10:08 20 02/21/20 10:04 104 H 98 02/21/20 09:59 102 H 96 02/21/20 09:54 104 H 128/75 98 02/21/20 09:49 105 H 95 02/21/20 09:44 114 H 99 02/21/20 09:39 103 H 117/71 98 02/21/20 09:34 92 H 96 02/21/20 09:29 101 H 96 02/21/20 09:25 100 H 83 L 02/21/20 09:24 106 H 116/64 96 02/21/20 09:19 101 H 112/63 97 02/21/20 09:18 37.4 C 18 02/21/20 09:14 103 H 98 02/21/20 09:09 94 H 118/62 96 02/21/20 09:04 94 H 95 02/21/20 08:59 97 H 98 02/21/20 08:54 95 H 122/72 98 02/21/20 08:49 105 H 97 02/21/20 08:44 96 H 97 02/21/20 08:39 102 H 119/70 98 02/21/20 08:34 103 H 97 02/21/20 08:31 100 H 93 02/21/20 08:29 104 H 100 02/21/20 08:24 103 H 120/72 97 02/21/20 08:23 16 02/21/20 08:19 104 H 98 02/21/20 08:14 99 H 98 02/21/20 08:09 102 H 118/70 99 02/21/20 08:04 98 H 98 02/21/20 07:59 105 H 99 02/21/20 07:54 111 H 122/73 98 02/21/20 07:49 99 H 99 02/21/20 07:44 96 H 99 02/21/20 07:39 37.3 C 102 H 18 123/82 98 02/21/20 07:34 109 H 99 02/21/20 07:29 103 H 99 02/21/20 07:24 101 H 123/76 98 02/21/20 07:19 97 H 99 02/21/20 07:14 116 H 99 02/21/20 07:09 105 H 122/77 99 02/21/20 07:04 96 H 98 02/21/20 07:00 18 02/21/20 06:59 106 H 97 02/21/20 06:54 105 H 121/76 98 02/21/20 06:49 105 H 99 02/21/20 06:47 120 H 91 02/21/20 06:44 104 H 99 02/21/20 06:39 100 H 100 02/21/20 06:38 100 H 115/71 02/21/20 06:34 90 100 02/21/20 06:30 18 02/21/20 06:29 104 H 100 02/21/20 06:24 90 116/67 100 02/21/20 06:19 87 100 02/21/20 06:14 86 100 02/21/20 06:09 86 116/69 100 02/21/20 06:04 90 100 02/21/20 06:00 18 02/21/20 05:59 96 H 100 02/21/20 05:54 93 H 123/71 98 02/21/20 05:49 98 H 98 02/21/20 05:44 105 H 98 02/21/20 05:40 103 H 127/75 02/21/20 05:39 99 H 92 02/21/20 05:35 104 H 94 02/21/20 05:34 97 H 93 02/21/20 05:30 18 02/21/20 05:29 92 H 98 02/21/20 05:24 88 121/68 97 02/21/20 05:19 102 H 98 02/21/20 05:16 36.6 C 02/21/20 05:14 91 H 97 02/21/20 05:09 82 118/63 97 02/21/20 05:04 86 99 02/21/20 05:00 18 02/21/20 04:59 89 99 02/21/20 04:54 91 H 122/73 97 02/21/20 04:49 90 97 02/21/20 04:44 99 H 97 02/21/20 04:39 88 113/69 97 02/21/20 04:34 86 96 02/21/20 04:30 18 02/21/20 04:29 89 97 02/21/20 04:24 99 H 118/68 98 02/21/20 04:19 92 H 98 02/21/20 04:14 94 H 98 02/21/20 04:09 95 H 120/69 98 02/21/20 04:04 95 H 97 02/21/20 03:59 99 H 96 02/21/20 03:54 88 125/76 97 02/21/20 03:49 99 H 95 02/21/20 03:46 102 H 92 02/21/20 03:44 97 H 97 02/21/20 03:40 96 H 121/79 02/21/20 03:39 93 H 98 02/21/20 03:37 36.7 C 02/21/20 03:34 99 H 97 02/21/20 03:30 18 02/21/20 03:29 89 97 02/21/20 03:24 100 H 115/64 99 02/21/20 03:19 76 96 02/21/20 03:14 80 96 02/21/20 03:09 90 97/58 L 97 02/21/20 03:04 86 97 02/21/20 03:00 18 02/21/20 02:59 79 97 02/21/20 02:54 75 100/58 L 97 02/21/20 02:48 80 97 02/21/20 02:43 86 98 02/21/20 02:40 76 99/57 L 02/21/20 02:38 77 98 02/21/20 02:33 95 H 99 02/21/20 02:30 18 02/21/20 02:28 106 H 97 02/21/20 02:25 85 105/64 02/21/20 02:23 86 97 02/21/20 02:18 86 96 02/21/20 02:13 89 98 02/21/20 02:09 89 112/56 L 02/21/20 02:08 90 95 02/21/20 02:06 98 H 94 02/21/20 02:03 97 H 96 02/21/20 02:00 18 02/21/20 01:58 85 95 Coding Level of Care Code None Diagnoses Post term over 40 weeks O48.0
--- NOTE | 2020-02-21 15:35 | Labor Progress Brief Note ---
Date of Service February 21, 2020 Subjective Patient feeling very pushy Assessment & Plan (1) Post term over 40 weeks: (2) PROM (premature rupture of membranes): will begin stage 2. Going to be a tight fit, head very molded. Fetus overall reassuring. Admission and Anticipated Discharge Date Admission Date: February 20, 2020 Physical Exam Constitutional: WD/WN, vitals as above Psychiatric: A+Ox3, euthymic affect Genitourinary: cx--c/c/0-+1 toco--q2-3min, pit at 15 efm--160s with mod variability, accels present, variables with some contractions Results & Data ([facility]) Vital Signs (Past 12 Hours) Vital Signs Temp Pulse Resp BP Pulse Ox 02/21/20 15:30 124 H 99 02/21/20 15:28 120 H 136/83 02/21/20 15:25 119 H 96 02/21/20 15:23 112 H 136/78 02/21/20 15:20 114 H 134/75 96 02/21/20 15:15 118 H 98 02/21/20 15:14 116 H 130/68 02/21/20 15:09 128 H 99 02/21/20 15:08 122 H 133/72 02/21/20 15:04 112 H 100 02/21/20 15:03 116 H 123/67 02/21/20 14:59 117 H 128/66 99 02/21/20 14:54 114 H 100 02/21/20 14:53 118 H 124/69 02/21/20 14:50 122 H 126/68 02/21/20 14:49 128 H 100 02/21/20 14:44 129 H 122/67 100 02/21/20 14:39 113 H 99 02/21/20 14:38 113 H 124/64 02/21/20 14:34 117 H 100 02/21/20 14:33 122 H 117/65 02/21/20 14:29 120 H 100 02/21/20 14:28 110 H 116/66 02/21/20 14:24 115 H 98 02/21/20 14:23 110 H 18 121/65 02/21/20 14:19 115 H 100 02/21/20 14:18 103 H 116/62 02/21/20 14:14 101 H 122/64 98 02/21/20 14:09 96 H 113/63 97 02/21/20 14:04 103 H 98 02/21/20 14:03 114 H 115/65 02/21/20 13:59 103 H 113/61 97 02/21/20 13:54 103 H 108/65 97 02/21/20 13:49 107 H 97 02/21/20 13:48 113 H 106/61 02/21/20 13:44 89 107/61 95 02/21/20 13:39 90 95 02/21/20 13:38 89 112/61 02/21/20 13:34 105 H 97 02/21/20 13:33 100 H 106/58 L 02/21/20 13:30 18 02/21/20 13:29 109 H 97 02/21/20 13:28 99 H 110/67 02/21/20 13:24 117 H 98 02/21/20 13:23 96 H 110/64 02/21/20 13:22 112 H 112/67 02/21/20 13:20 92 H 94 02/21/20 13:19 92 H 94 02/21/20 13:18 102 H 112/58 L 02/21/20 13:14 114 H 119/59 L 99 02/21/20 13:09 104 H 97 02/21/20 13:08 36.8 C 104 H 18 109/60 98 02/21/20 13:06 113 H 116/66 02/21/20 13:04 110 H 118/67 98 02/21/20 13:02 108 H 120/65 02/21/20 13:00 111 H 117/65 02/21/20 12:59 105 H 100 02/21/20 12:58 100 H 108/63 02/21/20 12:56 105 H 119/65 02/21/20 12:55 108 H 124/69 02/21/20 12:54 113 H 99 02/21/20 12:49 109 H 100 02/21/20 12:44 120 H 97 02/21/20 12:39 109 H 143/71 H 97 02/21/20 12:34 118 H 97 02/21/20 12:30 20 02/21/20 12:29 107 H 98 02/21/20 12:25 118 H 151/71 H 02/21/20 12:24 115 H 95 02/21/20 12:19 110 H 97 02/21/20 12:14 112 H 97 02/21/20 12:09 112 H 125/67 99 02/21/20 12:04 113 H 98 02/21/20 11:59 110 H 98 02/21/20 11:54 114 H 128/60 98 02/21/20 11:49 107 H 97 02/21/20 11:44 94 H 97 02/21/20 11:39 101 H 114/66 99 02/21/20 11:34 111 H 98 02/21/20 11:29 119 H 98 02/21/20 11:24 113 H 20 130/74 97 02/21/20 11:19 102 H 97 02/21/20 11:14 106 H 98 02/21/20 11:09 114 H 132/72 97 02/21/20 11:04 108 H 100 02/21/20 10:59 109 H 99 02/21/20 10:54 111 H 129/71 99 02/21/20 10:50 115 H 93 02/21/20 10:49 101 H 98 02/21/20 10:44 111 H 98 02/21/20 10:39 104 H 127/71 95 02/21/20 10:34 120 H 94 02/21/20 10:30 18 02/21/20 10:29 112 H 98 02/21/20 10:24 100 H 127/70 96 02/21/20 10:19 117 H 98 02/21/20 10:14 107 H 99 02/21/20 10:09 105 H 127/67 99 02/21/20 10:08 20 02/21/20 10:04 104 H 98 02/21/20 09:59 102 H 96 02/21/20 09:54 104 H 128/75 98 02/21/20 09:49 105 H 95 02/21/20 09:44 114 H 99 02/21/20 09:39 103 H 117/71 98 02/21/20 09:34 92 H 96 02/21/20 09:29 101 H 96 02/21/20 09:25 100 H 83 L 02/21/20 09:24 106 H 116/64 96 02/21/20 09:19 101 H 112/63 97 02/21/20 09:18 37.4 C 18 02/21/20 09:14 103 H 98 02/21/20 09:09 94 H 118/62 96 02/21/20 09:04 94 H 95 02/21/20 08:59 97 H 98 02/21/20 08:54 95 H 122/72 98 02/21/20 08:49 105 H 97 02/21/20 08:44 96 H 97 02/21/20 08:39 102 H 119/70 98 02/21/20 08:34 103 H 97 02/21/20 08:31 100 H 93 02/21/20 08:30 18 02/21/20 08:29 104 H 100 02/21/20 08:24 103 H 120/72 97 02/21/20 08:23 16 02/21/20 08:19 104 H 98 02/21/20 08:14 99 H 98 02/21/20 08:09 102 H 118/70 99 02/21/20 08:04 98 H 98 02/21/20 07:59 105 H 99 02/21/20 07:54 111 H 122/73 98 02/21/20 07:49 99 H 99 02/21/20 07:44 96 H 99 02/21/20 07:39 37.3 C 102 H 18 123/82 98 02/21/20 07:34 109 H 99 02/21/20 07:29 103 H 99 02/21/20 07:24 101 H 123/76 98 02/21/20 07:19 97 H 99 02/21/20 07:14 116 H 99 02/21/20 07:09 105 H 122/77 99 02/21/20 07:04 96 H 98 02/21/20 07:00 18 02/21/20 06:59 106 H 97 02/21/20 06:54 105 H 121/76 98 02/21/20 06:49 105 H 99 02/21/20 06:47 120 H 91 02/21/20 06:44 104 H 99 02/21/20 06:39 100 H 100 02/21/20 06:38 100 H 115/71 02/21/20 06:34 90 100 02/21/20 06:30 18 02/21/20 06:29 104 H 100 08/17/20 06:24 90 116/67 100 08/17/20 06:19 87 100 02/21/20 06:14 86 100 02/21/20 06:09 86 116/69 100 02/21/20 06:04 90 100 02/21/20 06:00 18 02/21/20 05:59 96 H 100 02/21/20 05:54 93 H 123/71 98 02/21/20 05:49 98 H 98 02/21/20 05:44 105 H 98 02/21/20 05:40 103 H 127/75 02/21/20 05:39 99 H 92 02/21/20 05:35 104 H 94 02/21/20 05:34 97 H 93 02/21/20 05:30 18 02/21/20 05:29 92 H 98 02/21/20 05:24 88 121/68 97 02/21/20 05:19 102 H 98 02/21/20 05:16 36.6 C 02/21/20 05:14 91 H 97 02/21/20 05:09 82 118/63 97 02/21/20 05:04 86 99 02/21/20 05:00 18 02/21/20 04:59 89 99 02/21/20 04:54 91 H 122/73 97 02/21/20 04:49 90 97 02/21/20 04:44 99 H 97 02/21/20 04:39 88 113/69 97 02/21/20 04:34 86 96 02/21/20 04:30 18 02/21/20 04:29 89 97 02/21/20 04:24 99 H 118/68 98 02/21/20 04:19 92 H 98 02/21/20 04:14 94 H 98 02/21/20 04:09 95 H 120/69 98 02/21/20 04:04 95 H 97 02/21/20 03:59 99 H 96 02/21/20 03:54 88 125/76 97 02/21/20 03:49 99 H 95 02/21/20 03:46 102 H 92 02/21/20 03:44 97 H 97 02/21/20 03:40 96 H 121/79 02/21/20 03:39 93 H 98 02/21/20 03:37 36.7 C 02/21/20 03:34 99 H 97 Coding Level of Care Code None Diagnoses Post term over 40 weeks O48.0 PROM (premature rupture of membranes) O42.90
--- NOTE | 2020-02-21 16:40 | Delivery Summary ---
Vaginal Delivery Summary Date of Service February 21, 2020 Vaginal Delivery Summary Pre-operative Diagnosis: at 40 weeks prom Post-operative Diagnosis: same Procedure: epidural pitocin augmentation iupc periclitoral and second degree laceration EBL: 400cc Anesthesia: epidural Procedure: The patient pushed for about 37 min to deliver a viable female in briana position. The anterior shoulder was delivered easily and the rest of the was then delivered without difficulty. The baby was vigorous. The nose and mouth were bulb suctioned and the was placed in the maternal abdomen for drying and attention. Cord was clamped and cut at one minute of life. Cord blood and segment obtained. Placenta delivered spontaneous, intact with a three vessel cord. Cervix/sulci/rectum were intact. A second degree perineal laceration and a periclitoral laceration were repaired in the normal standard fashion. Hemostasis obtained with dilute pitocin and fundal massage. Apgars were 9/9. Mother and baby doing well at the end of the delivery. [facility] V[facility]inal Delivery Charge Vaginal Delivery Codes: 45046 global code for the antepartum, delivery, and post-
[2020-02-21] MEDS ORDERED: ACETAMINOPHEN 325 MG TAB PO PRN (16:43)
[2020-02-21] MEDS ORDERED: DIPHTHERIA/TETANUS/PERTUSSIS 0.5 ML SYR/VIAL IM ONE (17:41)
[2020-02-21] MEDS ORDERED: HYDROCORTISONE ACETATE 25 MG SUPP PR PRN (17:41)
[2020-02-21] MEDS ORDERED: OXYCODONE/ACETAMINOPHEN 5mg/325mg TAB PO PRN (17:41)
[2020-02-21] MEDS ORDERED: bisacodyL 10 MG SUPP PR PRN (17:41)
[2020-02-21] MEDS ORDERED: BENZOCAINE 20% AER SPR 82.5 GM CAN EXT PRN (17:41)
[2020-02-21] MEDS ORDERED: SUPERCREAM 0.870% 15 GM JAR EXT PRN (17:41)
[2020-02-21] MEDS: IBUPROFEN 600 MG TAB PO PRN (17:42)
--- NOTE | 2020-02-21 18:08 | Anesthesiology Progress Note ---
Date of Service February 21, 2020 Anesthesia Post Procedure Vital Signs Vital Signs: Temp Pulse Resp BP Pulse Ox 02/21/20 18:03 111 H 114/61 02/21/20 17:48 107 H 110/61 02/21/20 17:33 105 H 105/58 L 02/21/20 17:18 110 H 116/66 02/21/20 17:03 112 H 125/65 02/21/20 16:46 121 H 122/57 L 02/21/20 16:38 37.3 C 133 H 22 123/66 98 02/21/20 16:33 121 H 116/59 L 02/21/20 16:30 131 H 98 02/21/20 16:28 133 H 123/66 02/21/20 16:25 129 H 97 02/21/20 16:24 134 H 94 02/21/20 16:23 129 H 116/57 L 02/21/20 16:20 117 H 97 02/21/20 16:18 114 H 138/72 02/21/20 16:15 121 H 99 02/21/20 16:13 123 H 131/64 93 02/21/20 16:10 127 H 85 L 02/21/20 16:08 137 H 120/79 93 02/21/20 16:05 129 H 93 02/21/20 16:03 160 H 140/69 02/21/20 16:00 121 H 95 02/21/20 15:58 129 H 131/60 02/21/20 15:55 132 H 94 02/21/20 15:54 129 H 131/58 L 02/21/20 15:52 120 H 94 02/21/20 15:50 131 H 93 02/21/20 15:48 127 H 113/59 L 02/21/20 15:46 125 H 94 02/21/20 15:45 144 H 95 02/21/20 15:40 120 H 95 02/21/20 15:39 118 H 127/61 02/21/20 15:36 115 H 81 L 02/21/20 15:35 115 H 96 02/21/20 15:33 118 H 122/73 02/21/20 15:30 124 H 99 02/21/20 15:28 120 H 136/83 02/21/20 15:25 119 H 96 02/21/20 15:23 112 H 136/78 08/17/20 15:20 114 H 134/75 96 02/21/20 15:15 118 H 98 02/21/20 15:14 116 H 130/68 02/21/20 15:09 128 H 99 02/21/20 15:08 122 H 133/72 02/21/20 15:04 112 H 100 02/21/20 15:03 116 H 123/67 02/21/20 14:59 117 H 128/66 99 02/21/20 14:54 114 H 100 02/21/20 14:53 118 H 124/69 02/21/20 14:50 122 H 126/68 02/21/20 14:49 128 H 100 02/21/20 14:44 129 H 122/67 100 02/21/20 14:39 113 H 99 02/21/20 14:38 113 H 124/64 02/21/20 14:34 117 H 100 02/21/20 14:33 122 H 117/65 02/21/20 14:29 120 H 100 02/21/20 14:28 110 H 116/66 02/21/20 14:24 115 H 98 02/21/20 14:23 110 H 18 121/65 02/21/20 14:19 115 H 100 02/21/20 14:18 103 H 116/62 02/21/20 14:14 101 H 122/64 98 02/21/20 14:09 96 H 113/63 97 02/21/20 14:04 103 H 98 02/21/20 14:03 114 H 115/65 02/21/20 13:59 103 H 113/61 97 02/21/20 13:54 103 H 108/65 97 02/21/20 13:49 107 H 97 02/21/20 13:48 113 H 106/61 02/21/20 13:44 89 107/61 95 02/21/20 13:39 90 95 02/21/20 13:38 89 112/61 02/21/20 13:34 105 H 97 02/21/20 13:33 100 H 106/58 L 02/21/20 13:30 18 02/21/20 13:29 109 H 97 02/21/20 13:28 99 H 110/67 02/21/20 13:24 117 H 98 02/21/20 13:23 96 H 110/64 02/21/20 13:22 112 H 112/67 02/21/20 13:20 92 H 94 02/21/20 13:19 92 H 94 02/21/20 13:18 102 H 112/58 L 02/21/20 13:14 114 H 119/59 L 99 02/21/20 13:09 104 H 97 02/21/20 13:08 36.8 C 104 H 18 109/60 98 02/21/20 13:06 113 H 116/66 02/21/20 13:04 110 H 118/67 98 02/21/20 13:02 108 H 120/65 02/21/20 13:00 111 H 117/65 02/21/20 12:59 105 H 100 02/21/20 12:58 100 H 108/63 02/21/20 12:56 105 H 119/65 02/21/20 12:55 108 H 124/69 02/21/20 12:54 113 H 99 02/21/20 12:49 109 H 100 02/21/20 12:44 120 H 97 02/21/20 12:39 109 H 143/71 H 97 02/21/20 12:34 118 H 97 02/21/20 12:30 20 02/21/20 12:29 107 H 98 02/21/20 12:25 118 H 151/71 H 02/21/20 12:24 115 H 95 02/21/20 12:19 110 H 97 02/21/20 12:14 112 H 97 02/21/20 12:09 112 H 125/67 99 02/21/20 12:04 113 H 98 02/21/20 11:59 110 H 98 02/21/20 11:54 114 H 128/60 98 02/21/20 11:49 107 H 97 02/21/20 11:44 94 H 97 02/21/20 11:39 101 H 114/66 99 02/21/20 11:34 111 H 98 02/21/20 11:29 119 H 98 02/21/20 11:24 113 H 20 130/74 97 02/21/20 11:19 102 H 97 02/21/20 11:14 106 H 98 02/21/20 11:09 114 H 132/72 97 02/21/20 11:04 108 H 100 02/21/20 10:59 109 H 99 02/21/20 10:54 111 H 129/71 99 02/21/20 10:50 115 H 93 02/21/20 10:49 101 H 98 02/21/20 10:44 111 H 98 02/21/20 10:39 104 H 127/71 95 02/21/20 10:34 120 H 94 02/21/20 10:30 18 02/21/20 10:29 112 H 98 02/21/20 10:24 100 H 127/70 96 02/21/20 10:19 117 H 98 02/21/20 10:14 107 H 99 02/21/20 10:09 105 H 127/67 99 02/21/20 10:08 20 02/21/20 10:04 104 H 98 02/21/20 09:59 102 H 96 02/21/20 09:54 104 H 128/75 98 02/21/20 09:49 105 H 95 02/21/20 09:44 114 H 99 02/21/20 09:39 103 H 117/71 98 02/21/20 09:34 92 H 96 02/21/20 09:29 101 H 96 02/21/20 09:25 100 H 83 L 02/21/20 09:24 106 H 116/64 96 02/21/20 09:19 101 H 112/63 97 02/21/20 09:18 37.4 C 18 02/21/20 09:14 103 H 98 02/21/20 09:09 94 H 118/62 96 02/21/20 09:04 94 H 95 02/21/20 08:59 97 H 98 02/21/20 08:54 95 H 122/72 98 02/21/20 08:49 105 H 97 02/21/20 08:44 96 H 97 02/21/20 08:39 102 H 119/70 98 02/21/20 08:34 103 H 97 02/21/20 08:31 100 H 93 02/21/20 08:30 18 02/21/20 08:29 104 H 100 02/21/20 08:24 103 H 120/72 97 02/21/20 08:23 16 02/21/20 08:19 104 H 98 02/21/20 08:14 99 H 98 02/21/20 08:09 102 H 118/70 99 02/21/20 08:04 98 H 98 02/21/20 07:59 105 H 99 02/21/20 07:54 111 H 122/73 98 02/21/20 07:49 99 H 99 02/21/20 07:44 96 H 99 02/21/20 07:39 37.3 C 102 H 18 123/82 98 02/21/20 07:34 109 H 99 02/21/20 07:29 103 H 99 02/21/20 07:24 101 H 123/76 98 02/21/20 07:19 97 H 99 02/21/20 07:14 116 H 99 02/21/20 07:09 105 H 122/77 99 02/21/20 07:04 96 H 98 02/21/20 07:00 18 02/21/20 06:59 106 H 97 02/21/20 06:54 105 H 121/76 98 02/21/20 06:49 105 H 99 02/21/20 06:47 120 H 91 02/21/20 06:44 104 H 99 02/21/20 06:39 100 H 100 02/21/20 06:38 100 H 115/71 02/21/20 06:34 90 100 02/21/20 06:30 18 02/21/20 06:29 104 H 100 02/21/20 06:24 90 116/67 100 02/21/20 06:19 87 100 02/21/20 06:14 86 100 02/21/20 06:09 86 116/69 100 02/21/20 06:04 90 100 02/21/20 06:00 18 02/21/20 05:59 96 H 100 02/21/20 05:54 93 H 123/71 98 02/21/20 05:49 98 H 98 02/21/20 05:44 105 H 98 02/21/20 05:40 103 H 127/75 02/21/20 05:39 99 H 92 02/21/20 05:35 104 H 94 02/21/20 05:34 97 H 93 02/21/20 05:30 18 02/21/20 05:29 92 H 98 02/21/20 05:24 88 121/68 97 02/21/20 05:19 102 H 98 02/21/20 05:16 36.6 C 08/17/20 05:14 91 H 97 02/21/20 05:09 82 118/63 97 02/21/20 05:04 86 99 02/21/20 05:00 18 02/21/20 04:59 89 99 02/21/20 04:54 91 H 122/73 97 02/21/20 04:49 90 97 02/21/20 04:44 99 H 97 02/21/20 04:39 88 113/69 97 02/21/20 04:34 86 96 02/21/20 04:30 18 02/21/20 04:29 89 97 02/21/20 04:24 99 H 118/68 98 02/21/20 04:19 92 H 98 02/21/20 04:14 94 H 98 02/21/20 04:09 95 H 120/69 98 02/21/20 04:04 95 H 97 02/21/20 03:59 99 H 96 02/21/20 03:54 88 125/76 97 02/21/20 03:49 99 H 95 02/21/20 03:46 102 H 92 02/21/20 03:44 97 H 97 02/21/20 03:40 96 H 121/79 02/21/20 03:39 93 H 98 02/21/20 03:37 36.7 C 02/21/20 03:34 99 H 97 02/21/20 03:30 18 02/21/20 03:29 89 97 02/21/20 03:24 100 H 115/64 99 02/21/20 03:19 76 96 02/21/20 03:14 80 96 02/21/20 03:09 90 97/58 L 97 02/21/20 03:04 86 97 02/21/20 03:00 18 02/21/20 02:59 79 97 02/21/20 02:54 75 100/58 L 97 02/21/20 02:48 80 97 02/21/20 02:43 86 98 02/21/20 02:40 76 99/57 L 02/21/20 02:38 77 98 02/21/20 02:33 95 H 99 02/21/20 02:30 18 02/21/20 02:28 106 H 97 02/21/20 02:25 85 105/64 02/21/20 02:23 86 97 08/17/20 02:18 86 96 02/21/20 02:13 89 98 02/21/20 02:09 89 112/56 L 02/21/20 02:08 90 95 02/21/20 02:06 98 H 94 02/21/20 02:03 97 H 96 02/21/20 02:00 18 02/21/20 01:58 85 95 02/21/20 01:55 90 115/56 L 02/21/20 01:53 82 95 02/21/20 01:48 84 97 02/21/20 01:46 101 H 94 02/21/20 01:43 87 96 02/21/20 01:38 100 H 97 02/21/20 01:37 82 106/56 L 02/21/20 01:33 93 H 105/58 L 95 02/21/20 01:30 18 02/21/20 01:28 78 97/52 L 95 02/21/20 01:24 85 94 02/21/20 01:23 84 104/58 L 96 02/21/20 01:20 36.6 C 02/21/20 01:19 93 H 111/57 L 02/21/20 01:18 114 H 97 02/21/20 01:15 18 02/21/20 01:13 90 100/54 L 97 02/21/20 01:10 86 18 94 02/21/20 01:08 89 96 02/21/20 01:06 89 102/59 L 02/21/20 01:05 18 02/21/20 01:04 83 101/56 L 02/21/20 01:03 100 H 97 02/21/20 01:02 91 H 100/57 L 02/21/20 01:00 90 18 102/59 L 02/21/20 00:58 85 105/63 98 02/21/20 00:57 104/57 L 02/21/20 00:55 65 94 02/21/20 00:54 63 92/54 L 02/21/20 00:53 63 84/47 L 95 02/21/20 00:52 54 L 94/49 L 02/21/20 00:48 76 97 02/21/20 00:43 101 H 96 02/21/20 00:38 93 H 98 08/16/20 23:54 93 H 124/66 08/16/20 23:29 36.6 C 18 02/20/20 22:46 84 132/72 02/20/20 21:37 36.5 C 79 18 114/77 02/20/20 20:37 83 119/74 02/20/20 19:21 37.3 C 85 18 128/78 Transfer of Care Handoff Completed per policy Notes Mental Status: alert / awake / arousable and participated in evaluation Patient Amnestic to Procedure: Yes Nausea / Vomiting: adequately controlled Pain: adequately controlled Airway Patency, RR, SpO2: stable & adequate BP & HR: stable & adequate Hydration State: stable & adequate Anesthetic Complications: no major complications apparent and Pt Satisfied with anesthetic care
[2020-02-21] MEDS: DOCUSATE SODIUM 100 MG CAP PO SCH (20:35)
[2020-02-22 05:52] LABS: Hemoglobin 9.2 g/dL (12.0-16.0)
--- NOTE | 2020-02-22 06:34 | Obstetrical Progress Note ---
Date of Service <Stacy Purvis DO - Last Filed: 02/22/20 07:19> February 22, 2020 Assessment & Plan <Stacy Purvis DO - Last Filed: 02/22/20 07:19> (1) Normal course: - Feels well today. Eating well, voiding well, ambulating well. - Pain well controlled with ibuprofen 600mg Q4H PRN - H/H 9.09/02 at 0532 this AM. Will start supplemental Iron po - Routine care -- OOB, ambulation, diet progression as tolerated - After discharge will have 6 week follow-up with Dr. Edwards. - Plan for d/c home tomorrow. Subjective <Stacy Purvis DO - Last Filed: 02/22/20 07:19> Daya Coates is a 29 y/o female who is PPD #1 following with epidural at 40 2/7 weeks. Labor was complicated by prom and GBS+ status. She reports feeling well overall this morning. Minimal abdominal cramping and 0/10 pain well managed on analgesics. Voiding without difficulty. Tolerating meals overnight without nausea or vomiting. Patient has been able to ambulate some. + passing gas and - bowel movement. Has persistent lochia with some improvement this morning. Currently . Review of Systems Denies fever or chills. Denies shortness of breath or cough. Denies chest pain. Denies breast pain. Denies dysuria. Denies leg pain or leg swelling. Denies headache or changes in vision. Physical Exam <Stacy Purvis DO - Last Filed: 02/22/20 07:19> General: Alert, oriented. No acute distress. Cardiac: Regular rate and rhythm. No murmurs. Respiratory: Clear to auscultation bilaterally a/p, no wheezes/rales/rhonchi. No increased work of breathing. Symmetrical chest rise. No respiratory distress. Abdomen: Soft, nontender, nondistended. Bowel sounds present. Uterus: Uterine fundus firm, palpable 1 cm below umbilicus. Lower Extremities: No lower extremity edema or swelling. No deep calf pain. Sunil's negative bilaterally. Results & Data ([facility]) <Stacy Purvis DO - Last Filed: 02/22/20 07:19> Vital Signs (Past 12 Hours) Vital Signs Temp Pulse Pulse Resp BP BP 02/22/20 04:10 36.7 C 88 16 108/69 02/21/20 23:55 36.8 C 91 H 16 97/63 L 02/21/20 19:35 36.8 C 101 H 18 115/68 02/21/20 18:33 116 H 115/57 L Laboratory Results H/H 9.2/27% at 0532 this AM <Josseline Edwards MD, FACOG - Last Filed: 02/22/20 07:30> Co-Signing Physician Notes Resident Physician Supervision Note: I interviewed and examined the patient. Discussed with Dr. Purvis and agree with findings and plan as documented in the note. Any exceptions or clarifications are listed here: Doing well. Routine pp care. Documented By: Josseline Edwards MD, FACOG
[2020-02-22] MEDS: DOCUSATE SODIUM 100 MG CAP PO SCH ×2 (09:25→21:43)
[2020-02-22] MEDS: PRENATAL VITAMIN 1 TAB PO SCH (09:25)
[2020-02-22] MEDS: FERROUS SULFATE 325 MG TAB PO SCH (09:25)
[2020-02-22] MEDS: IBUPROFEN 600 MG TAB PO PRN (19:58)
[2020-02-22] MEDS ORDERED: bisacodyL 5 MG TABEC PO SCH (20:00)
[2020-02-23] MEDS: IBUPROFEN 600 MG TAB PO PRN ×2 (00:14→08:38)
--- NOTE | 2020-02-23 06:48 | Obstetrical Progress Note ---
Date of Service <Stacy Mel Purvis - Last Filed: 02/23/20 07:19> February 23, 2020 Assessment & Plan <Stacy Mel Purvis DO - Last Filed: 02/23/20 07:19> (1) Normal course: - PNL: Rh pos, RI, GBS pos, COVID neg - Feels well today. Eating well, voiding well, ambulating well. - Pain well controlled with ibuprofen 600mg Q4H PRN - Routine care -- OOB, ambulation, diet progression as tolerated - After discharge will have 6 week follow-up with Dr. Edwards. - Plan for consultation prior to d/c home. - Plan for d/c home today. Subjective <Stacy GodwinKhurram Purvis DO - Last Filed: 02/23/20 07:19> Daya Coates is a 29 y/o female who is PPD #2 following with epidural at 40 2/7 weeks. She reports feeling well overall this morning. No abdominal cramping and 0/10 pain well managed on analgesics. Voiding without dysuria or difficulty. Tolerating meals overnight without nausea or vomiting. Patient has been able to ambulate some. + passing gas and + bowel movement. Has persistent lochia with some improvement this morning. Currently desires to breastfeed but they note that they have been pumping and finger feeding due to difficulty with latching. Review of Systems Denies fever or chills. Denies shortness of breath or cough. Denies chest pain. Denies breast pain. Denies dysuria. Denies leg pain or leg swelling. Denies headache or changes in vision. Physical Exam <Stacy Purvis DO - Last Filed: 02/23/20 07:19> General: Alert, oriented. No acute distress. Cardiac: Regular rate and rhythm. No murmurs. Respiratory: Clear to auscultation bilaterally a/p, no wheezes/rales/rhonchi. No increased work of breathing. Symmetrical chest rise. No respiratory distress. Abdomen: Soft, nontender, nondistended. Bowel sounds present. Uterus: Uterine fundus firm, palpable 1 cm below umbilicus. Lower Extremities: No lower extremity edema or swelling. No deep calf pain. Sunil's negative bilaterally. Results & Data ([facility]) <Stacy Purvis, DO - Last Filed: 02/23/20 07:19> Vital Signs (Past 12 Hours) Vital Signs Temp Pulse Resp BP Pulse Ox 02/23/20 00:15 36.6 C 84 18 132/73 98 02/22/20 20:00 36.9 C 83 18 118/79 96 <Liz Fulton MD, FACOG - Last Filed: 02/23/20 07:43> Co-Signing Physician Notes Resident Physician Supervision Note: I was present with Dr. Purvis during the history and exam. I discussed the case with the resident and agree with the findings and plan as documented in the note. Any exceptions or clarifications are listed here: doing well, she needs some help with feeding but otherwise ready to go home today. ff 2 down nt. nt calves. instructions reviewed. f/u 6wk pp check. Documented By: Liz Fulton MD, FACOG
[2020-02-23] MEDS: FERROUS SULFATE 325 MG TAB PO SCH (08:36)
[2020-02-23] MEDS: DOCUSATE SODIUM 100 MG CAP PO SCH (08:36)
[2020-02-23] MEDS: PRENATAL VITAMIN 1 TAB PO SCH (08:36)
== END 2020-02-23 16:20 | disposition home or self-care (01) | DRG 807 ==
LOC: OPB 17:35 → 4S1 17:36 → 4S2 02-21 19:23

== ENCOUNTER 2024-03-18 20:24 | Inpatient (IN) ==
[2024-03-18] MEDS: LACTATED RINGER'S 1,000 ML IV SCH (21:25)
[2024-03-18] MEDS ORDERED: ceFAZolin 3000MG 3,000 MG/72.5 ML BAG IV SCH (21:30)
[2024-03-18 21:45] LABS: Hematocrit (blood only) 34.7 % (37.0-47.0); Mean Corpuscular Hemoglobin 30.3 pg (25.0-34.0); Mean Corpuscular Hgb Conc 34.6 g/dL (32.0-36.0); Mean Corpuscular Volume 87.6 fL (80.0-100.0); Mean Platelet Volume 9.4 fL (9.4-12.4); Platelet Count 280 K/uL (130-400); RDW Coefficient of Variation 14.1 % (11.5-14.5); Red Blood Count 3.96 M/uL (4.20-5.40); White Blood Count 12.93 K/ul (4.8-10.8)
--- NOTE | 2024-03-18 21:48 | History & Physical Report ---
Date of Service March 18, 2024 Assessment & Plan (1) Breech presentation: Plan: IUP at 40+ weeks with SPROM and breech presentation confirmed on ultrasound will proceed with LTCS - consent signed after procedure and risks reviewed with patient and her . all questions answered to their satisfaction see orders History of Present Illness Primary Care Provider: VALENTIN Domingo Patient is a 33yo female EDC 03/17/24 who presents at 40 1/7 weeks with SPROM at 1930 today for clear fluid. irregular contractions now. complicated by AMA status and GBS (+) Allergies Allergy/AdvReac Type Severity Reaction Status Date / Time Bactrim Allergy Intermediate vomiting Verified 01/27/19 10:59 and hives sulfamethoxazole Allergy Intermediate vomiting Verified 03/18/24 13:37 and hives trimethoprim Allergy Intermediate vomiting Verified 03/18/24 13:37 and hives Home Medications Medication Instructions Recorded Confirmed Type clobetasol 0.05 % scalp solution 1 applic topical DAILY #50 mL 01/28/23 03/18/24 Rx 21-iron fu-folic acid 1 tab PO DAILY 08/18/23 03/18/24 History [ Complete] Patient History Medical History Hyperlipidemia History of chicken pox 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 History of arthritis Surgical History H/O colposcopy with cervical biopsy S/P wisdom tooth extraction Family History (Updated 08/18/23 @ 08:51 by Doreen Do) Grandmother (Paternal) Breast cancer Mother Breast cancer COPD (chronic obstructive pulmonary disease) Family/Other Hypertension Dyslipidemia Father Myocardial infarction Denies family history of Ovarian cancer Colorectal cancer Social History (Updated 08/18/23 @ 08:52 by Doreen Do) Smoking Status: Never smoker Do You Dip or Chew Tobacco: No; Hx Alcohol Use: No Hx Substance Use: No Preferred Language: Pry[place]in[place] Communication Ability: Effective Visual Impairment: No Limitations Hearing Ability: Normal School Age Teacher Required: No Beliefs That Will Affect Care: None marital status: marital status details: Sridhar Coates (37) [phone] Current Living Situation: Spouse and Family Current Living Situation Comment: stepdaughter, daughter current occupational status: employed current occupation: PT-pr[employer] Feels Safe at Home: Yes Safety Concerns: Feels Safe At This Time Childhood Exposure to Second-Hand Smoke: No Dental Care, Regularly: Yes Physical Activity Frequency: 3-4 Times per Week Physical Activity Frequency Comment: 3-5 times per week for 30-60 minutes Seatbelt Use: always Sunscreen Use: Yes Assistive Devices: None Review of Systems All systems reviewed & are unremarkable except as noted in HPI & below Physical Exam Constitutional: WD/WN, vitals as above Psychiatric: A+Ox3, euthymic affect Genitourinary: OB Exam Abdomen: + breech (confirmed by ultrasound) and + irregular contractions Manual OB Exam: + cervical dilation 3 cm, + cervical effacement 50% and + station (-3) OB Exam Monitor Tracing: + external FHT monitor used, + external uterine monitor used, + category I and + normal FHT variability Results & Data Vital Signs (Past 12 Hours) Vital Signs Pulse BP 03/18/24 20:58 88 124/69 Code Status & VTE Plan VTE Prophylaxis Plan VTE Prophylaxis will be ordered: No Coding Level of Care Code 46291 INT INP/OBS CARE 1/40MIN Diagnoses Breech presentation, single or unspecified fetus O32.1XX0 Fetus number: single or unspecified fetus (1) Breech presentation Fetus number: single or unspecified fetus Qualified Code(s): O32.1XX0 - Maternal care for breech presentation, not applicable or unspecified
[2024-03-18] MEDS: ACETAMINOPHEN 500 MG TAB PO SCH (21:51)
--- NOTE | 2024-03-18 22:08 | Anesthesiology Consultation ---
Date of Service March 18, 2024 Assessment & Plan Chart Review Chart Review: Acceptable Risk for Surgery Consults Requested none ASA [id number] Proposed Anesthesia Anesthesia Type: Spinal Risk / Benefits Reviewed With: PT / POA / Parent / Guardian, Accepts Plan and Informed Consent Obtained History Surgery Operation Date: 03/18/24 21:30 Proposed Procedures p Section in LD - Monie Kuo MD, FACOG Height/Weight Height: 5 ft 4 in Weight: 90.718 kg Allergies Allergy/AdvReac Type Severity Reaction Status Date / Time Bactrim Allergy Intermediate vomiting Verified 01/27/19 10:59 and hives sulfamethoxazole Allergy Intermediate vomiting Verified 03/18/24 13:37 and hives trimethoprim Allergy Intermediate vomiting Verified 03/18/24 13:37 and hives Medications Home Medications Medication Instructions Recorded Confirmed Last Taken clobetasol 0.05 % scalp solution 1 applic topical DAILY #50 mL 01/28/23 03/18/24 Unknown 21-iron fu-folic acid 1 tab PO DAILY 08/18/23 03/18/24 03/17/24 [ Complete] Active Medications Generic Name Dose Route Start Last Admin Trade Name Freq PRN Reason Stop Dose Admin Acetaminophen 1,000 mg 03/18/24 21:30 03/18/24 21:51 Acetaminophen 500 Mg Tab PO 04/17/24 21:29 1,000 mg PREOP IRMA Administration Lactated Ringer's 1,000 mls @ 999 mls/hr 03/18/24 21:30 03/18/24 21:25 Lr IV 03/18/24 22:30 999 mls/hr .[id number] IRMA Administration NPO Date Last Intake of Fluids: 03/18/24 Time Last Intake of Fluids: 18:30 Date Last Intake of Solids: 03/18/24 Time Last Intake of Solids: 18:30 Past Medical History Medical History History of chicken pox 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 History of arthritis Exercise / Class Metabolic Activity II 4-5 Yardwork/Stairs/Walk up hill Past Family History Family History Grandmother (Paternal) Breast cancer Mother Breast cancer COPD (chronic obstructive pulmonary disease) Family/Other Hypertension Dyslipidemia Father Myocardial infarction Denies family history of Ovarian cancer Colorectal cancer Past Surgical History Surgical History H/O colposcopy with cervical biopsy S/P wisdom tooth extraction Past Anesthesia History No Hx of Anesthesia Complications and No Family Hx of Anesthesia Complications History of PONV No Hx of PONV and No Hx of Motion Sickness Social History Smoking Status: Never smoker Do You Dip or Chew Tobacco: No Hx Alcohol Use: No Hx Substance Use: No Physical Exam Vital Signs Last Vital Signs Temp 98.1 F 03/18/24 20:58 Pulse 88 03/18/24 20:58 Resp 16 03/18/24 20:58 BP 124/69 03/18/24 20:58 ENMT Mouth: no dentition abnormality Thyromental Distance: > or= 3.5 Finger Breadths Mallampati Class: II Neck normal visual inspection Respiratory normal respiratory effort Auscultation: lungs clear to auscultation bilaterally Cardiovascular Rate/Rhythm: regular rate and regular rhythm Testing Laboratory Results 03/18/24 21:32
[2024-03-18] MEDS: CITRIC ACID/SODIUM CITRATE 15 ML UDC PO SCH (22:09)
[2024-03-18] MEDS ORDERED: fentaNYL citrate PF 100 MCG/2 ML VIAL ONE (22:10)
[2024-03-18] MEDS ORDERED: MoRPHine SULFATE PF 1 MG/ML 10 ML AMP/VIAL ONE (22:10)
[2024-03-18] MEDS: ceFAZolin 3000MG 3,000 MG/72.5 ML BAG IV SCH (22:13)
[2024-03-18] MEDS ORDERED: OXYTOCIN 10 UNITS/ML VIAL ONE (22:29)
[2024-03-18] MEDS ORDERED: ONDANSETRON INJ 2 MG/ML 2 ML VIAL ONE (22:30)
[2024-03-18] MEDS ORDERED: DEXAMETHASONE SOD INJ 4 MG/ML VIAL ONE (22:30)
[2024-03-18] MEDS ORDERED: ePHEDrine sulfate 50 MG/ML AMP IV PRN (22:32)
[2024-03-18] MEDS ORDERED: ONDANSETRON INJ 2 MG/ML 2 ML VIAL IV PRN (22:32)
[2024-03-18] MEDS ORDERED: MoRPHine SULFATE PF 1 MG/ML 10 ML AMP/VIAL INT SPINAL ONE (22:32)
[2024-03-18] MEDS ORDERED: KETOROLAC 30 MG/ML VIAL IV PRN ×2 (22:32→23:49)
[2024-03-18] MEDS ORDERED: diphenhydrAMINE 50 MG/ML VIAL IV PRN (22:32)
[2024-03-18] MEDS ORDERED: NALBUPHINE HCL INJ 10 MG/ML AMP IV PRN (22:32)
[2024-03-18] MEDS ORDERED: NALOXONE HCL 1 MG in SODIUM CHLORIDE 0.9% 1,000 ML IV PRN (22:32)
[2024-03-18] MEDS ORDERED: NALOXONE HCL 0.08 MG in SYRINGE 1.8 ML IV PRN (22:32)
[2024-03-18] MEDS ORDERED: MEPERIDINE HCL 25 MG/ML CARP/VIAL IV PRN (22:32)
[2024-03-18] MEDS ORDERED: NALOXONE HCL 0.4 MG/1 ML VIAL/CARP IV PRN (22:32)
[2024-03-18] MEDS ORDERED: LACTATED RINGER'S 500 ML IV PRN (22:32)
[2024-03-18] MEDS ORDERED: DC INTRASPINAL MORPHINE SCH (22:45)
[2024-03-18] MEDS ORDERED: SODIUM CHLORIDE 0.9% 1,000 ML IV SCH (22:45)
[2024-03-18] MEDS ORDERED: NO NARCOTICS OR SEDATIVES SCH (22:45)
[2024-03-18] MEDS ORDERED: KETOROLAC 30 MG/ML VIAL ONE (22:55)
--- NOTE | 2024-03-18 23:29 | Post Operative Brief Note ---
Immediate Post Op Note Date of Surgery March 18, 2024 Pre & Post Diagnosis Operation Date: 03/18/24 21:30 Pre-Op Diagnosis: Primary Section for Breech and SROM Post-Op Diagnosis: same I identified the patient and participated in the time-out.: Yes Procedure Operation Date: 03/18/24 21:30 Actual Procedures p Section in LD for [facility] at 2243(Bilateral) - Monie Kuo MD, FACOG Surgeon Monie Kuo MD, FACOG [employer] Supervisor Josseline Edwards MD Quantitative Blood Loss (QBL) 618 Findings Consistent with Post-Op Diagnosis gravid uterus consistent with term in size bilateral tubes and ovaries are normal 1.5cm sessile fibroid on anterior fundus Specimens Specimen Description: A. Placenta - hold B. Cord Blood Drains Hawkins Catheter (place in OR, Draining clear yellow urine. To be monitored by anethesia during procedure ) Anesthesia Type Spinal Complications none Disposition Accompanied Patient To Recovery: Yes Disposition: L&D
[2024-03-18] MEDS ORDERED: BENZOCAINE 20% SPRY 85 APPLN/85 GM CAN EXT PRN (23:49)
[2024-03-18] MEDS ORDERED: LACTATED RINGER'S 1,000 ML IV SCH (23:49)
[2024-03-18] MEDS ORDERED: DIPHTHER/TETAN/PERTUS Vaccine (Tdap, Adol/Adult) 0.5mL IM ONE (23:49)
[2024-03-18] MEDS ORDERED: CALCIUM CARBONATE 500 MG CHEWABLE TAB PO PRN (23:49)
[2024-03-18] MEDS ORDERED: HYDROCORTISONE ACETATE 25 MG SUPP PR PRN (23:49)
[2024-03-18] MEDS ORDERED: MAGNESIUM HYDROXIDE SUSP 30 ML UDC PO PRN (23:49)
[2024-03-18] MEDS ORDERED: SENNA 8.6 MG TAB PO PRN (23:49)
[2024-03-19] MEDS ORDERED: Nursing to Pharmacy Communication SCH (00:15)
[2024-03-19] MEDS: OXYTOCIN 20 UNITS/LR 1,002 ML IV SCH (01:54)
[2024-03-19] MEDS: LACTATED RINGER'S 1,000 ML IV SCH (02:08)
--- NOTE | 2024-03-19 02:33 | Operative Report ---
Post Operative Report Pre & Post Diagnosis Operation Date: 03/18/24 21:30 Pre-Op Diagnosis: Primary Section for Breech and SROM Post-Op Diagnosis: same I identified the patient and participated in the time-out.: Yes Procedure Operation Date: 03/18/24 21:30 Actual Procedures p Section in LD for [facility] at 2243(Bilateral) - Monie Kuo MD, FACOG Surgeon Monie Kuo MD, FACOG Manager Front Josseline Edwards MD Quantitative Blood Loss (QBL) 618 Findings Consistent with Post-Op Diagnosis Uterus is gravid and consistent with a term and size, bilateral ovaries and fallopian tubes are grossly normal. There was a 1-1/2 cm sessile fibroid on the anterior fundus of the uterus. Specimens Placenta to hold Drains Hawkins catheter to straight drainage- clear urine at the end of the case Anesthesia Type Spinal Complications none Disposition Accompanied Patient To Recovery: Yes Disposition: L&D Indications -0-0-1 at 40 and 1/7 weeks presents with spontaneous rupture membranes and breech presentation. Description of Procedure As the patient received adequate subarachnoid block she was prepped and draped in the usual sterile fashion. A low transverse skin incision was made with a scalpel to the level of the fascia. Fascial incision was then extended with Cheng scissors and stretching. The edges were then grasped with Dannie clamps and the underlying rectus muscle bluntly dissected off of the overlying fascia. The vastus muscles were then bluntly divided in the midline and the underlying peritoneum elevated and entered sharply. The bladder was then taken down off the anterior surface of the uterus and placed behind the bladder blade. The lower uterine segment was then entered with a scalpel and extended transversely by stretching the incision in a cephalad and caudad direction. The male infant was delivered from the rip breech presentation with moderate fundal pressure. The was was vigorous and crying and moving all 4 limbs. After the cord was clamped and cut, he was handed off to Dr. Vazquez who was in attendance his heeler. After cord blood was obtained, the placenta was expressed intact with a three-vessel cord. The uterus was then exteriorized and covered with a clean lap sponge. The uterine cavity was then explored found to be free of any placental tissue or membranes. The uterus was then closed in 2 layers in a running locking imbricating fashion with 0 Monocryl. Bleeding site on the mid p ortion of the incision was secured with 2 [id number] stitches of 0 Monocryl. At this point hemostasis was noted to be excellent at the incision. There was some bleeding on the surface of the fibroid on the fundus of the uterus and this was controlled with the Bovie. Small amount of blood was suctioned from the posterior cul-de-sac. The incision on the uterus was examined once more and continue to have excellent hemostasis. The uterus was then gently placed back inside the abdominal cavity. The gutters were explored and found to be free of any clot or fluid. The uterine incision was examined the final time and again hemostasis was noted to be satisfactory. The rectus muscle were then brought together on the midline with individual stitches of 0 Monocryl. The fascia was closed in a running fashion with 0 Vicryl. After irrigating the subcutaneous layer, the skin edges were reapproximated with a subcuticular stitch of 4-0 Vicryl. Mother and tolerated the procedure we ll and was stable back in labor and delivery. I attest to the content of the Intraoperative Record and any orders documented therein. Any exceptions are noted below. OB Procedure Charges 56547
[2024-03-19] MEDS: IBUPROFEN 600 MG TAB PO SCH (06:00)
[2024-03-19] MEDS ORDERED: ceFAZolin 3000MG 3,000 MG/72.5 ML BAG IV SCH (06:00)
[2024-03-19] MEDS: ACETAMINOPHEN 325 MG TAB PO SCH (06:01)
--- NOTE | 2024-03-19 06:02 | Obstetrical Progress Note ---
Date of Service March 19, 2024 Assessment & Plan (1) Encounter for care and examination after delivery: (2) Breech presentation: (3) Carrier of group B Streptococcus: Plan Pt is 33 yo post- day 1 s/p at 40w1d. complicated by breech presentation and GBS positive. Puritis likely due to side effect of fentanyl, no rash noted on skin. Will continue to monitor Vitals and Hbg is stable. Encourage ambulation Ibuprofen 600mg PRN q4h and Tylenol 600mg PRN q6H for pain control Monitor vitals and Hbg Follow up with Dr. Kuo in 6 weeks Admission and Anticipated Discharge Date Admission Date: March 18, 2024 Supervising Physician Co-Signing Physician Notes Resident Physician Supervision Note: I interviewed and examined the patient. Discussed with Dr. Cuello and agree with findings and plan as documented in the note. Any exceptions or clarifications are listed here: [None] Documented By: Monie Kuo MD, FACOG Subjective Pt is 33 yo post- day 1 s/p at 40w1d. complicated by breech presentation and GBS positive. Ambulation: None yet, pt is eager Voiding:pierre just removed. no voiding independently yet Passing gas: no BM: no Diet tolerance:regular diet Lochia:bloody, no clots Feeding type: formula Current pain level: 3 /10 improved with ibuprofen Resting comfortably this morning in NAD. Pt is eager to start walking. She notes she had a lot of itching on her arms and face last night after surgery. Denies JARRELL, CP, SOB, N/V/D, LE pain/swelling. Review of Systems Review of Systems: As per HPI Physical Exam Constitutional: WD/WN, vitals as above Respiratory: normal respiratory effort, lungs clear to auscultation Cardiovascular: RRR, no murmur, no edema Gastrointestinal (Abdomen): normal bowel sounds, soft, nontender, no hepatosplenomegaly Uterine fundus firm and at level of umbilicus Incision is well approximated, no drainage Skin: no rashes, warm and dry Neurologic: PERRL, EOMI, accommodation nl, no face palsy, no dysarthria Moving all 4 extremities on command Psychiatric: A+Ox3, euthymic affect Results & Data Vital Signs (Past 12 Hours) Vital Signs Temp Pulse Pulse Resp BP BP Pulse Ox 03/19/24 05:18 16 98 03/19/24 04:45 36.6 C 65 16 129/80 96 03/19/24 04:00 14 95 03/19/24 03:00 16 97 03/19/24 02:00 14 96 03/19/24 02:00 36.4 C L 60 14 108/73 96 03/19/24 01:33 77 97 03/19/24 01:32 68 114/68 03/19/24 01:28 75 97 03/19/24 01:23 73 97 03/19/24 01:22 36.4 C L 16 03/19/24 01:22 78 114/63 03/19/24 01:18 71 96 03/19/24 01:13 96 03/19/24 01:13 73 03/19/24 01:13 70 116/63 03/19/24 01:08 76 96 03/19/24 01:03 96 03/19/24 01:03 75 03/19/24 01:03 73 106/63 03/19/24 00:58 76 96 03/19/24 00:53 96 03/19/24 00:53 78 03/19/24 00:53 81 104/67 03/19/24 00:52 18 03/19/24 00:48 74 96 03/19/24 00:43 74 97 03/19/24 00:42 73 114/73 03/19/24 00:38 74 96 03/19/24 00:33 96 03/19/24 00:33 70 03/19/24 00:33 76 113/66 03/19/24 00:28 76 96 03/19/24 00:23 97 03/19/24 00:23 69 03/19/24 00:23 75 110/67 03/19/24 00:22 16 03/19/24 00:18 79 96 03/19/24 00:13 68 96 03/19/24 00:12 16 03/19/24 00:12 70 114/71 03/19/24 00:08 78 97 03/19/24 00:03 73 97 03/19/24 00:02 18 03/19/24 00:02 74 113/68 03/18/24 23:58 73 97 03/18/24 23:53 71 97 03/18/24 23:52 18 03/18/24 23:52 73 111/64 03/18/24 23:48 85 95 03/18/24 23:46 77 94 03/18/24 23:43 80 93 03/18/24 23:42 16 03/18/24 23:42 76 107/64 03/18/24 23:39 70 94 03/18/24 23:38 71 95 03/18/24 23:33 72 95 03/18/24 23:32 16 03/18/24 23:32 71 03/18/24 23:32 71 103/62 94 03/18/24 23:28 88 94 03/18/24 23:23 94 03/18/24 23:23 88 03/18/24 23:23 76 100/57 L 03/18/24 23:22 36.3 C L 16 03/18/24 20:58 36.7 C 88 16 124/69 03/18/24 20:58 88 124/69 O2 Del Method 03/19/24 05:18 03/19/24 04:45 Room Air 03/19/24 04:00 03/19/24 03:00 03/19/24 02:00 03/19/24 02:00 Room Air 03/19/24 01:33 03/19/24 01:32 03/19/24 01:28 03/19/24 01:23 03/19/24 01:22 03/19/24 01:22 03/19/24 01:18 03/19/24 01:13 03/19/24 01:13 03/19/24 01:13 03/19/24 01:08 03/19/24 01:03 03/19/24 01:03 03/19/24 01:03 03/19/24 00:58 03/19/24 00:53 03/19/24 00:53 03/19/24 00:53 03/19/24 00:52 03/19/24 00:48 03/19/24 00:43 03/19/24 00:42 03/19/24 00:38 03/19/24 00:33 03/19/24 00:33 03/19/24 00:33 03/19/24 00:28 03/19/24 00:23 03/19/24 00:23 03/19/24 00:23 03/19/24 00:22 03/19/24 00:18 03/19/24 00:03/19/24 00:03/19/24 00:03/19/24 00:03/19/24 00:03 03/19/24 00:02 03/19/24 00:02 03/18/24 23:58 03/18/24 23:53 03/18/24 23:52 03/18/24 23:52 03/18/24 23:48 03/18/24 23:46 03/18/24 23:43 03/18/24 23:42 03/18/24 23:42 03/18/24 23:39 03/18/24 23:38 03/18/24 23:33 03/18/24 23:32 03/18/24 23:32 03/18/24 23:32 03/18/24 23:28 03/18/24 23:23 03/18/24 23:23 03/18/24 23:23 03/18/24 23:22 03/18/24 20:58 03/18/24 20:58 Resident Activity Tracking Resident Involvement: Resident Care Provided Care Provided: Adult Hospital Medicine (2) Breech presentation Fetus number: single or unspecified fetus Qualified Code(s): O32.1XX0 - Maternal care for breech presentation, not applicable or unspecified
--- NOTE | 2024-03-19 06:14 | Anesthesiology Progress Note ---
Date of Service March 19, 2024 Anesthesia Post Procedure Vital Signs Vital Signs: Temp Pulse Pulse Resp BP BP Pulse Ox 03/19/24 05:18 16 98 03/19/24 04:45 97.9 F 65 16 129/80 96 03/19/24 04:00 14 95 03/19/24 03:00 16 97 03/19/24 02:00 14 96 03/19/24 02:00 97.5 F L 60 14 108/73 96 03/19/24 01:33 77 97 03/19/24 01:32 68 114/68 03/19/24 01:28 75 97 03/19/24 01:23 73 97 03/19/24 01:22 97.5 F L 16 03/19/24 01:22 78 114/63 03/19/24 01:18 71 96 03/19/24 01:13 96 03/19/24 01:13 73 03/19/24 01:13 70 116/63 03/19/24 01:08 76 96 03/19/24 01:03 96 03/19/24 01:03 75 03/19/24 01:03 73 106/63 03/19/24 00:58 76 96 03/19/24 00:53 96 03/19/24 00:53 78 03/19/24 00:53 81 104/67 03/19/24 00:52 18 03/19/24 00:48 74 96 03/19/24 00:43 74 97 03/19/24 00:42 73 114/73 03/19/24 00:38 74 96 03/19/24 00:33 96 03/19/24 00:33 70 03/19/24 00:33 76 113/66 03/19/24 00:28 76 96 03/19/24 00:23 97 03/19/24 00:23 69 03/19/24 00:23 75 110/67 03/19/24 00:22 16 03/19/24 00:18 79 96 03/19/24 00:13 68 96 03/19/24 00:12 16 03/19/24 00:12 70 114/71 03/19/24 00:08 78 97 03/19/24 00:03 73 97 03/19/24 00:02 18 03/19/24 00:02 74 113/68 03/18/24 23:58 73 97 03/18/24 23:53 71 97 03/18/24 23:52 18 03/18/24 23:52 73 111/64 03/18/24 23:48 85 95 03/18/24 23:46 77 94 03/18/24 23:43 80 93 03/18/24 23:42 16 03/18/24 23:42 76 107/64 03/18/24 23:39 70 94 03/18/24 23:38 71 95 03/18/24 23:33 72 95 03/18/24 23:32 16 03/18/24 23:32 71 03/18/24 23:32 71 103/62 94 03/18/24 23:28 88 94 03/18/24 23:23 94 03/18/24 23:23 88 03/18/24 23:23 76 100/57 L 03/18/24 23:22 97.3 F L 16 03/18/24 20:58 98.1 F 88 16 124/69 03/18/24 20:58 88 124/69 O2 Del Method 03/19/24 05:18 03/19/24 04:45 Room Air 03/19/24 04:00 03/19/24 03:00 03/19/24 02:00 03/19/24 02:00 Room Air 03/19/24 01:33 03/19/24 01:32 03/19/24 01:28 03/19/24 01:23 03/19/24 01:22 03/19/24 01:22 03/19/24 01:18 03/19/24 01:13 03/19/24 01:13 03/19/24 01:13 03/19/24 01:08 03/19/24 01:03 03/19/24 01:03 03/19/24 01:03 03/19/24 00:58 03/19/24 00:53 03/19/24 00:53 03/19/24 00:53 03/19/24 00:52 03/19/24 00:48 03/19/24 00:43 03/19/24 00:42 03/19/24 00:38 03/19/24 00:33 03/19/24 00:33 03/19/24 00:33 03/19/24 00:28 03/19/24 00:23 03/19/24 00:23 03/19/24 00:23 03/19/24 00:22 03/19/24 00:18 03/19/24 00:13 03/19/24 00:12 03/19/24 00:12 03/19/24 00:08 03/19/24 00:03 03/19/24 00:02 03/19/24 00:02 03/18/24 23:58 03/18/24 23:53 03/18/24 23:52 03/18/24 23:52 03/18/24 23:48 03/18/24 23:46 03/18/24 23:43 03/18/24 23:42 03/18/24 23:42 03/18/24 23:39 03/18/24 23:38 03/18/24 23:33 03/18/24 23:32 03/18/24 23:32 03/18/24 23:32 03/18/24 23:28 03/18/24 23:23 03/18/24 23:23 03/18/24 23:23 03/18/24 23:22 03/18/24 20:58 03/18/24 20:58 Transfer of Care Handoff Completed per policy Notes Mental Status: alert / awake / arousable and participated in evaluation Nausea / Vomiting: adequately controlled Pain: adequately controlled Airway Patency, RR, SpO2: stable & adequate BP & HR: stable & adequate Hydration State: stable & adequate Neuraxial Anesthesia: was administered and sensory block is resolving Anesthetic Complications: no major complications apparent and Pt Satisfied with anesthetic care
[2024-03-19 06:38] LABS: Basophils # (auto) 0.04 K/uL (0.00-0.20); Basophils % (auto) 0.2 %; Eosinophils # (auto) 0.01 K/uL (0.00-0.50); Eosinophils % (auto) 0.1 %; Hematocrit (blood only) 33.6 % (37.0-47.0); Hemoglobin 11.4 g/dl (12.0-16.0); Immature Granulocytes # (auto) 0.13 K/uL (0.01-0.20); Immature Granulocytes % (auto) 0.7 %; Lymphocytes # (auto) 1.46 K/uL (1.20-3.40); Lymphocytes % (auto) 8.2 %; Mean Corpuscular Hemoglobin 30.1 pg (25.0-34.0); Mean Corpuscular Hgb Conc 33.9 g/dL (32.0-36.0); Mean Corpuscular Volume 88.7 fL (80.0-100.0); Mean Platelet Volume 9.6 fL (9.4-12.4); Monocytes # (auto) 1.07 K/uL (0.11-0.59); Neutrophils # (auto) 15.04 K/uL (1.40-6.50); Neutrophils % (auto) 84.8 %; Platelet Count 261 K/uL (130-400); RDW Coefficient of Variation 14.2 % (11.5-14.5); RDW Standard Deviation 45.8 fL (36.4-46.3); Red Blood Count 3.79 M/uL (4.20-5.40); White Blood Count 17.75 K/ul (4.8-10.8)
[2024-03-19 08:25] VITALS: RESP 16
[2024-03-19] MEDS: PRENATAL VITAMIN 1 TAB PO SCH (09:38)
[2024-03-19] MEDS: SIMETHICONE 80 MG CHEW PO SCH (09:38)
[2024-03-19] MEDS: FERROUS SULFATE 325 MG TAB PO SCH (09:38)
[2024-03-19] MEDS: DOCUSATE SODIUM 100 MG CAP PO SCH (09:38)
[2024-03-19] MEDS ORDERED: HYDROmorphone INJ 0.5 MG/0.5 ML SYR IV PRN (16:33)
[2024-03-19] MEDS ORDERED: ONDANSETRON INJ 2 MG/ML 2 ML VIAL IV PRN (16:33)
[2024-03-19] MEDS ORDERED: oxyCODONE HCL IR 5 MG TAB (IMMEDIATE RELEASE) PO PRN (16:33)
[2024-03-19] MEDS ORDERED: diphenhydrAMINE 50 MG/ML VIAL IV PRN (16:33)
[2024-03-19] MEDS ORDERED: diphenhydrAMINE Capsule 25 MG CAP PO PRN (16:33)
[2024-03-19] MEDS ORDERED: PROMETHAZINE 12.5 MG/50.5 ML BAG IV PRN (16:33)
[2024-03-19] MEDS: bisacodyL 5 MG TABEC PO SCH (20:48)
--- NOTE | 2024-03-20 05:50 | Obstetrical Progress Note ---
Date of Service March 20, 2024 Assessment & Plan (1) Encounter for care and examination after delivery: (2) Breech presentation: (3) Carrier of group B Streptococcus: Plan Pt is 33 yo post- day 2 s/p at 40w1d. complicated by breech presentation and GBS positive. Vitals and Hbg is stable. Encourage ambulation Ibuprofen 600mg PRN q4h and Tylenol 600mg PRN q6H for pain control Monitor vitals and Hbg Follow up with Dr. Kuo in 6 weeks Discharge home today Admission and Anticipated Discharge Date Admission Date: March 18, 2024 Supervising Physician Co-Signing Physician Notes Resident Physician Supervision Note: I interviewed and examined the patient. Discussed with Dr. Cuello and agree with findings and plan as documented in the note. Any exceptions or clarifications are listed here: Doing well. Meeting all goals. Desires d/c. Instructions reviewed. Documented By: Josseline Edwards MD, FACOG Subjective Pt is 33 yo post- day 2 s/p at 40w1d. complicated by breech presentation and GBS positive. Ambulation: walking in room and in halls Voiding: voiding independently Passing gas: yes BM: no Diet tolerance:regular diet Lochia:bloody, no clots Feeding type: formula Current pain level: 1-3 /10 improved with meds Resting comfortably this morning in NAD. Continues with bilateral Le swelling Denies JARRELL, CP, SOB, N/V/D, LE pain. Review of Systems Review of Systems: As per HPI Physical Exam Constitutional: WD/WN, vitals as above Respiratory: normal respiratory effort, lungs clear to auscultation Cardiovascular: Rate/Rhythm: regular rate and regular rhythm Heart Sounds: no murmur Extremities: + edema; no calf tenderness Gastrointestinal (Abdomen): normal bowel sounds, soft, nontender, no hepatosplenomegaly Uterine fundus if firm and 1-2 cm below umbilicus Incision is clean, dry and well approximated Skin: no rashes, warm and dry Neurologic: PERRL, EOMI, accommodation nl, no face palsy, no dysarthria Psychiatric: A+Ox3, euthymic affect Results & Data Vital Signs (Past 12 Hours) Vital Signs Temp Pulse Resp BP Pulse Ox O2 Del Method 03/19/24 23:01 36.7 C 82 16 108/68 96 Room Air 03/19/24 19:30 36.7 C 95 H 16 107/69 99 Room Air Resident Activity Tracking Resident Involvement: Resident Care Provided Care Provided: Adult Hospital Medicine (2) Breech presentation Fetus number: single or unspecified fetus Qualified Code(s): O32.1XX0 - Maternal care for breech presentation, not applicable or unspecified
[2024-03-20 07:24] LABS: Hematocrit (blood only) 29.8 % (37.0-47.0); Hemoglobin 10.2 g/dl (12.0-16.0)
[2024-03-20 09:09] VITALS: BP 124/81; PULSE 72; TEMP 97.7; O2SAT 100
[2024-03-20] MEDS ORDERED: bisacodyL 10 MG SUPP PR PRN (23:24)
[2024-03-20] MEDS ORDERED: IBUPROFEN 600 MG TAB PO PRN (23:24)
[2024-03-20] MEDS ORDERED: ACETAMINOPHEN 325 MG TAB PO PRN (23:24)
--- NOTE | 2024-03-22 16:05 | Discharge Summary ---
Date of Service March 22, 2024 Admission HPI Per Admitting Provider Patient is a 33yo female EDC [birth year] who presents at 40 1/7 weeks with SPROM at 1930 today for clear fluid. irregular contractions now. complicated by AMA status and GBS (+) Admission Exam (Per Admitting) Constitutional WD/WN, vitals as above Psychiatric A+Ox3, euthymic affect Genitourinary OB Exam Abdomen: + breech (confirmed by ultrasound) and + irregular contractions Manual OB Exam: + cervical dilation + 3 cm, + cervical effacement + 50% and + station (-3) OB Exam Monitor Tracing: + external FHT monitor used, + external uterine monitor used, + category I and + normal FHT variability Discharge Data Consultations 03/18/24 21:16 Consult Anesthesiology Stat Procedures Performed Operation Date: 03/18/24 21:30 Actual Procedures p Section in LD for [facility] at 2243(Bilateral) - Monie Kuo MD, FACOG Discharge Plan Discharge Items Patient Disposition: Home - Self-Care Reason For Visit: SECTION Discharge Diagnosis: Activity: Per Instructions section Non-emergency contact: Compliance Field Technician Call non-emergency contact if: your symptoms worsen Follow-up/Referrals: Bee Tripathi CRNP [Primary Care Provider] - Diet: Regular Addtl Attending Provider Instructions: ACTIVITY RECOMMENDATIONS: * Gradual return to full activity over the next 2-3 weeks. * No lifting - nothing heavier than baby over the next 2-3 weeks. * Do not engage in vigorous exercise, sexual activity or sports until cleared by your physician. * Do not drive or operate any motorized equipment until cleared by your physician. * You may shower/bathe daily. MEDICATIONS: For discomfort or pain, you may use Acetaminophen (Tylenol), Ibuprofen (Advil), or Naproxen (Aleve) following the package directions. For constipation you may use Colace following the package directions. BREAST CARE: If you are not breast feeding: * Wear a supportive bra 24 hours a day for one to two weeks. * Avoid stimulating your breasts and nipples as much as possible during the first few weeks after delivery. * When taking a shower, have the warm water hit your back, not breasts. * When your breasts feel full, apply ice packs. Usually three to four times a day helps ease the discomfort. * Take a mild pain medication (Tylenol / Motrin) when you are uncomfortable. If breast feeding: * Use breast milk to lubricate nipples. Lansinoh cream may be used for sore nipples. You do not need to remove cream prior to breast feeding. If using a different brand of cream, check the label for directions regarding removal of cream prior to nursing. * Wear a supportive bra. * If having problems with breasts or breast feeding, call a garden consultant or your health care provider. SPECIAL CARE INSTRUCTIONS: When you are discharged from the hospital, it is important for you to follow the instructions listed below: * During the first week at home, you should be able to care for yourself and your baby. In addition, the usual light household activities are encouraged. * Limit your activities to the way you feel. Do not try to clean the house or move furniture. Be sensible. * If you actively engage in sports and have done so up until the time of your delivery, you may resume these activities as soon as you feel able. This may take up to one month or even longer. Use good judgment. * Continue to take your vitamins for at least six weeks after the of your baby. * Your diet need not be limited unless you were on a special diet before your delivery. Breast-feeding mothers need around 2500 calories per day and at least 64-80 ounces of fluid per day (8 to 10 glasses). * You should eat foods from the four major food groups. Crash diets or fad diets are to be avoided. Eating lean meats, fresh fruits and vegetables, low-fat dairy products, high fiber foods and a regular exercise program, will help you get back to your pre- weight without putting your health at risk. * Constipation is sometimes a problem after delivery. Take a mild laxative as needed. If breast feeding, Milk of Magnesia is acceptable to use. You may use a suppository or Fleets enema. * A daily shower or tub bath is suggested. Wash incision daily with warm soapy water and pat dry. It doesn't need to be covered unless drainage is present. * A bloody vaginal discharge will usually continue until around four weeks . A small amount of bleeding may continue for as long as six weeks. Vaginal discharge changes from the bright red bleeding after delivery to pink then brownish and finally yellowish-pink before becoming white and disappearing. * Bleeding may increase with activity. Your first period may come in 4-8 weeks. If you are breast feeding, your period may be delayed even longer. * [place] (sex) can begin whenever both you and your partner feel comfortable and do not have any form of genital infection. It is recommended that you wait at least six weeks for internal and external healing to occur. If you have questions, please talk to your health care practitioner. A condom should be used to prevent infection and . * Foreplay, gentle intercourse and lubrication is very important the first several times to prevent pain. A water-based lubricant such as K-Y jelly or Astroglide may be used. * If you have RH negative blood and your baby is RH positive, you will receive RHOGAM by injection prior to discharge. The nurse will give you a card to keep with you that has the date and place that you received RHOGAM after delivery. * During your care, you had a Rubella screen done to check for the presence of rubella antibodies in your blood. If your test was negative, you will receive a Rubella vaccine prior to discharge. This vaccine may cause a fever, soreness at the injection site and flu-like symptoms. If these symptoms persist, notify your health care practitioner. is not advised for one month after a Rubella vaccine. * Verbalizes understanding of car seat law as reviewed with patient nursing. * Car Seat hand-out given and reviewed with patient by nursing. * Shaken baby information reviewed with patient by nursing. Call you doctor if: * Heavy bleeding (saturating several pads an hour) or passing clots the size of your fist. * A fever >101 degrees F (38.3 degrees C) on two occasions four hours apart and/or chills. * Unusual pain in the pelvic or vaginal areas. * Call the doctor for any increased redness, drainage or swelling around the incision and any pain unrelieved by prescribed pain medication. * "Baby Blues" lasting longer than two weeks. If you have any questions or concerns, call your health care practitioner at . FOLLOW UP VISIT: * Please call the office at to schedule a 6 week examination. It is important you keep this appointment. It is important for you to make arrangements for either yearly or twice yearly check-ups thereafter. Pending Studies at Discharge: No Stand-Alone Forms: [facility], Smoking Cessation Medications and DC Order Prescriptions: New oxycodone 5 mg Tablet 5 - 10 mg PO Q3H PRN (Reason: pain) Qty: 10 0RF Continued clobetasol 0.05 % solution 1 applic topical DAILY Qty: 50 0RF 21-iron fu-folic acid [ Complete] 1 tab PO DAILY Discharge Orders: Discharge Order (Routine); Ordered 03/20/24 Ordered By: Maya Segura/Other Patient Handouts: DVT in , Understanding Depression Admission Data Admit Date/Time: 03/18/24 22:47 Attending Provider: Monie Kuo Admit Provider: Monie Kuo Primary Care Provider: Bee Tripathi Other Providers: Josseline Edwards; Maya Cuello Other Interventions: Discharge Summary Assessment (RN) Last Done: 03/20/24 08:57 Coding Level of Care Code 66596 IN/OBS DISCH 30 MIN/LESS
== END 2024-03-20 11:50 | disposition home or self-care (01) | DRG 787 ==
LOC: OPB 20:24 → 4S1 20:28 → 4E2 03-19 02:14